=== PATIENT | female | born 1960 | race Caucasian/White ===

== ENCOUNTER → 2019-05-29 15:28 | Outpatient (CLI) | payer BC, SELFPAY ==
--- NOTE | 2019-05-29 | DI.CT.S_ITS ---
PROCEDURE: CT CHEST WO CON INDICATIONS: Bronchiectasis, uncomplicated TECHNIQUE: Noncontrast 5 mm thick sections acquired from the pulmonary apices to the posterior costophrenic angles. 1 mm lung window, 5 mm thick coronal and sagittal and 7 mm axial MIP reformats were then acquired. For radiation dose reduction, the following was used: automated exposure control, adjustment of mA and/or kV according to patient size. COMPARISON: [facility], CR, CHEST 2VW, 01/08/2007, 12:55. [facility], CT, THORAX WITH CONTRAST, 10/19/2016, 7:05. FINDINGS: Image quality: Excellent. Lungs and pleura: No acute consolidation. There is widespread bilateral upper and lower lobe bronchiectasis, and bronchial wall thickening. There are scattered areas of mucoid impaction. Previously seen and described small pulmonary nodules are either stable or less conspicuous since 10/19/16 although this could be in part a function due to progressive/coalescent fibrotic change. Diffuse mosaic lung attenuation is seen, suggesting air-trapping and small airways disease. No pleural effusions or pneumothorax. There is diffuse panlobular emphysema with basilar predominance. Mediastinum: Heart size is normal. No pericardial effusion. No mediastinal adenopathy by size criteria. Thoracic aorta and central pulmonary arteries are normal in size. Esophagus is normal in caliber. No hiatal hernia. Bones and chest wall: No suspicious bony lesions. No vertebral body compression fractures. No axillary or supraclavicular adenopathy by size criteria. Thyroid gland unremarkable. Abdomen: Visualized upper abdominal solid organs and bowel loops appear normal in the absence of contrast. IMPRESSION: Redemonstration of basilar predominant panlobular emphysema in keeping with alpha-1 antitrypsin deficiency. Widespread upper, lower lobe bronchiectasis and airway thickening as before. Dictated by: Javier Clark M.D. on 05/29/2019 at 17:09 Approved by: Javier Clark M.D. on 05/29/2019 at 17:21
== END ==
PROVIDERS: Visit Provider Internal Medicine Critical Care Medicine
DX: J43.1 Panlobular emphysema (principal); J47.9 Bronchiectasis, uncomplicated
CPT/HCPCS: 71250

== ENCOUNTER 2019-12-31 10:00 | Outpatient (RCR) | payer BC, SELFPAY ==
[2019-11-12 13:33] VITALS: BP 130/80; O2SAT 89; BMI 24.0; BMI 26.4
--- NOTE | 2019-11-12 15:51 | PR.IEVALNOTE ---
Current Diagnoses Chronic obstructive pulmonary disease, unspecified (11/12/19) Visit Care Team Role Provider Type Ingrid Hager MD Attending Provider Non-Staff Specialty: Pulmonology Address: [address] [place] [address], [id number] Email: Pulmonary Rehab Initial Evaluation [place] Pulmonary Rehab Inital Assessment Start: 11/12/19 13:29 Freq: Status: Active Protocol: Document 11/12/19 13:33 RAULITO (Rec: 11/12/19 13:50 RAULITO [id number]) AK Exercise Assessment Dx: Brochiectasis Comment COPD, Primary Language CROATIAN Sheet Cutting Operator Required No Hearing Ability Normal Visual Impairment No Limitations Visual Assist Glasses Body Alignment Posture Good Posture,Relaxed Assistive Devices None Comment pt denies any barriers to exercise and states she will be able to exercise independently after completion of Pulmonary Rehab Comment not currently exercising AK Vital Signs Left Radial Resting Heart Rate: 94 Target Heart Rate: 120 Strength: Normal Pulse Rhythm: Regular Pulse Assessment Method Pulse Ox/Monitor Pulse Oximetry (91-100 %) 89 L Nasal Cannula Yes Oxygen Flow Rate (L/min) 3 O2 Sat: 89 Respiratory Effort Non-Labored Respiratory Depth Normal Assessment expiratory wheezes through out Left Arm Blood Pressure (90/60-140/90 mmHg) 130/80 Blood Pressure Method Manual Cuff/Auscultation Blood Pressure Position Sitting AK Six Minute Walk Test Oxygen Flow Rate (L) (L/min) 3 Respiratory Rate (breaths/min) 18 Pulse Rate (beats/min) 94 O2 Saturation by Pulse Oximetry (%) 90 Pulse Rate (beats/min) 113 Ambulation Distance (feet) 200 O2 Saturation by Pulse Oximetry (%) 89 Pulse Rate (beats/min) 116 Ambulation Distance (feet) 150 O2 Saturation by Pulse Oximetry (%) 88 Pulse Rate (beats/min) 123 Ambulatory Distance (feet) 200 O2 Saturation by Pulse Oximetry (%) 82 Ambulation Distance (feet) 150 O2 Saturation by Pulse Oximetry (%) 88 Respiratory Rate (breaths/min) 24 Pulse Rate (beats/min) 120 Ambulation Distance (feet) 0 O2 Saturation by Pulse Oximetry (%) 90 PUlse Rate (beats/min) 118 Ambulation Distance (feet) 150 O2 Saturation by Pulse Oximetry (%) 90 Respiratory Rate (breaths/min) 16 Pulse Rate (beats/min) 99 O2 Saturation by Pulse Oximetry (%) 93 Activity Tolerance Fair Adverse Reactions Desaturation Distance 850 ft Emmett RPE Scale 13 Oriented to RPE Scale Yes Dyspnea 3.5 Oriented to Dyspnea Scale Yes AK Exercise Goals Exercise Goals Progression of exercise training volume will result from increases in time, intensity, and frequency. Initial emphasis will be on increasing time. Exercise Goals Demonstrates proper technique with pursed lip breathing Demonstrates paced breathing and breath sequencing with ADL 's, stairs, etc demonstrates propert technique when using respiratory medications DASI Number and Comment 7.31 patient is working 20-30 hrs/ week Short Term focus on breathing techniques ie: pursed lip and diaphragmatic breathing Group Home goal to be able climb stairs at home without undue dyspnea AK Pulmonary Rehab Orientation Complete Complete Yes AK Nutrition Assessment PFT Date 05/06/17 Forced Vital Capacity (FVC) 1.41 46% Forced Exp. Volume/Forced Vital Cap 65 Ratio (FEV1/FVC Ratio) Forced Expiratory Volume in 1 sec. 0.92 38% Diffusing Capacity of the Lung (DLCO) 11.2 54% History of Diabetes No Type N/A Admit Height 155 cm Admit Weight 63.503 kg Admit Body Mass Index (BMI) 26.4 Weight Goal 135 BMI Goal 24 Liters Per Minute at Rest 2-3 Liters per Minute with ADL's 4-6 Liters per Minute with Sleep 2 Liters per Minute with Exercise 4-6 High Energy Periods Airplane Designer,Morning,Mid- Morning Tolerates Activity Fair Signs and Symptoms Activity Intolerance Dyspnea on Exertion,Fatigue on Exertion,Pallor,Significant Decrease in Orthostatic Systolic Blood Pressure AK Education Pre-Test Score 93 Tobacco Use N/A Use Yes Type wine Frequency 1/2 glass/ day Concerns None Education Topics Breathing Retraining Discussed Education Requirements on Yes Intake AK Psychosocial Initial Assess HADS Score 1 HADS Score 4 Marital Status Referral Needed No Target Goals increase exercise tolerance to meet or exceed Anderson score Physician Comment Ready for Pulmonary Rehabilitation Cooperative,Motivated
--- NOTE | 2019-12-17 15:16 | PR.REVALNOTE ---
Current Diagnoses Chronic obstructive pulmonary disease, unspecified (12/17/19) Visit Care Team Role Provider Type Ingrid Hager MD Attending Provider Non-Staff Specialty: Pulmonology Address: [address] [place] [address], [id number] Email: Pulmonary Rehab Re-Evaluation [place] Pulmonary Rehab. Re-Assessment Start: 11/12/19 13:29 Freq: Status: Active Protocol: Document 12/17/19 15:03 JAMESRoxanne (Rec: 12/17/19 15:16 JWRoxanne [id number]) MO Exercise Re-Assessment New Session Number 1-13 Type Nustep,Treadmill METs (resistance level) TM3.29 NS3.23 % Improvement TM 47% NS 24% Interval Training No Shortness of Breath with Exercise Yes Desaturation with Exercise Yes: Patient showing improvement with titration of O2 depending on activities Free Weight Yes Band Level Yes Intervention Pt requires frequent reminders to initiate PLB with CVEX Pt demonstrates good understanding of paced breathing MO Nutrition Re-Assessment Goals Pt will continue to learn tips Hypoxia Re-Assessment pt. showing progress with O2 titration requires infrequent reminders to adjust O2-showing progress MO Education Re-Assessment Topics Benefits of Exercise, Activities of daily living/ Leisure Activities,Eating Right,Oxygen: How and Why Goals Pt will Master PLB and Diaphragmatic Breathing,Pt will Master Energy Conserving Techniques,Pt will learn exercise safety,Pt will continue ED topics until completion MO Psychosocial Re-Assessment Patient in Class Regularly Yes Interventions Pt attending class regularly Referral Needed No Goals Pt will continue to attend classes 3x wk,Participate in social and educational discussion,Received emotional support from family/friends
--- NOTE | 2020-01-13 11:26 | PR.REVALNOTE ---
Current Diagnoses Chronic obstructive pulmonary disease, unspecified (12/31/19) Visit Care Team Role Provider Type Ingrid Hager MD Attending Provider Non-Staff Specialty: Pulmonology Address: [address] [place] [address], [phone] Email: Pulmonary Rehab Re-Evaluation [place] Pulmonary Rehab. Re-Assessment Start: 11/12/19 13:29 Freq: Status: Active Protocol: Document 12/17/19 15:03 Roxanne (Rec: 12/17/19 15:16 [facility] [id number]) [place] Exercise Re-Assessment New Session Number 1-13 Type Nustep,Treadmill METs (resistance level) TM3.29 NS3.23 % Improvement TM 47% NS 24% Interval Training No Shortness of Breath with Exercise Yes Desaturation with Exercise Yes: Patient showing improvmetn with titration of O2 depending on activities Free Weight Yes Band Level Yes Intervention Pt requires frequent reminders to initiate PLB with CVEX Pt demonstrates good understanding of paced breathing [place] Nutrition Re-Assessment Goals Pt will continue to learn tips Hypoxia Re-Assessment pt. showing progress with O2 titration reqiures infrequent reminders to adjust O2-showing progress [place] Education Re-Assessment Topics Benefits of Exercise, Activities of daily living/ Leisure Activities,Eating Right,Oxygen: How and Why Goals Pt will Master PLB and Diaphragmatic Breating,Pt will Master Energy Conserving Techniques,Pt will learn exercise safety,Pt will continue ED topics until completion [place] Psychosocial Re-Assessment Patient in Class Regularly Yes Interventions Pt attending class regularly Referral Needed No Goals Pt will continue to attend classes 3x wk,Participate in social and educational discussion,Received emotional support from family/friends Document 01/13/20 11:24 RAULITO (Rec: 01/13/20 11:26 [facility] [id number]) [place] Psychosocial Re-Assessment Additional Comment unable to assess patient as a result of the closure of Pulmonary Rehabilitation due to the Covid-19 pandemic
== END 2019-12-31 11:00 ==
LOC: PUL 10:00
PROVIDERS: Visit Provider Internal Medicine
DX: J44.9 Chronic obstructive pulmonary disease, unspecified (principal)
CPT/HCPCS: G0424

== ENCOUNTER → 2020-05-03 16:47 | Outpatient (CLI) | payer BC, SELFPAY ==
[2019-11-12 13:33] VITALS: BMI 24.0; BMI 26.4
--- NOTE | 2020-05-03 16:50 | DI.MG.S_ITS ---
BILATERAL DIGITAL SCREENING MAMMOGRAM 3D/2D WITH CAD: 05/03/2020 CLINICAL: Routine screening. Comparison is made to exams dated: 12/21/2016 mammogram, 12/26/2012 mammogram, and 08/28/2010 mammogram - [facility]. The tissue of both breasts is heterogeneously dense. This may lower the sensitivity of mammography. Current study was also evaluated with a Computer Aided Detection (CAD) system. No significant masses, calcifications, or other findings are seen in either breast. There has been no significant interval change. IMPRESSION: NEGATIVE There is no mammographic evidence of malignancy. A 1 year screening mammogram is recommended. This exam was interpreted at Station ID: [id number]. NOTE: For mammograms, a report in lay terms will be sent to the patient. Approximately 15% of breast malignancies will not be visualized mammographically. In the management of a palpable breast mass, a negative mammogram must not discourage biopsy of a clinically suspicious lesion. Electronically Signed By: Katerin fink/adry:05/04/2020 09:13:01 letter sent: Normal Exam ACR BI-RADS Category 1: Negative [id number]
== END ==
PROVIDERS: Referring Provider Physician Assistant Medical; Visit Provider Physician Assistant Medical
DX: Z12.31 Encounter for screening mammogram for malignant neoplasm of breast (principal)
CPT/HCPCS: 77063; 77067

== ENCOUNTER → 2020-06-07 14:50 | Outpatient (CLI) | payer BC, SELFPAY ==
[2019-11-12 13:33] VITALS: BMI 24.0; BMI 26.4
== END ==
PROVIDERS: PCP Physician Assistant Medical; Referring Provider Physician Assistant Medical; Visit Provider Physician Assistant Medical
DX: M85.851 Other specified disorders of bone density and structure, right thigh (principal); Z78.0 Asymptomatic menopausal state
CPT/HCPCS: 77080

== ENCOUNTER → 2020-11-15 07:59 | Outpatient (CLI) | payer BC, SELFPAY ==
[2019-11-12 13:33] VITALS: BMI 24.0; BMI 26.4
[2020-11-15 08:37] LABS: BUN Creatinine Ratio 37.7 (6-22); Blood Urea Nitrogen 23 mg/dL (7-17); Carbon Dioxide 29 mmol/L (22-32); Chloride 104 mmol/L (98-107); Estimated Glomerular Filt Rate > 60.0 mL/min (>60); Glucose 86 mg/dL (80-110); HEMOLYSIS < 15 (0-50); Potassium 4.5 mmol/L (3.4-5.1); Sodium 138 mmol/L (137-145)
[2020-11-16 08:12] LABS: Tacrolimus 7.5 ng/mL (2.0-20.0)
== END ==
PROVIDERS: PCP Physician Assistant Medical; Referring Provider Internal Medicine; Visit Provider Internal Medicine
DX: Z94.2 Lung transplant status (principal); Z79.899 Other long term (current) drug therapy
CPT/HCPCS: 80048; 80197

== ENCOUNTER → 2020-12-21 07:34 | Outpatient (CLI) | payer BC, SELFPAY ==
[2019-11-12 13:33] VITALS: BMI 24.0; BMI 26.4
[2020-12-21 08:27] LABS: Add Manual Diff / Slide Review NO; Basophils Absolute Auto 0 /uL (0-100); Basophils Percent Auto 1.3 % (0-2); Eosinophils Absolute Auto 100 /uL (0-450); Eosinophils Percent Auto 4.5 % (2-4); Hematocrit 34.8 % (36-46); Hemoglobin 11.7 g/dL (12.0-16.0); Lymphocytes Absolute Auto 1100 /uL (1100-4500); Lymphocytes Percent Auto 41.8 % (25-40); Mean Corpuscular HGB Conc 33.7 % (30-36); Mean Corpuscular Hemoglobin 34.3 PG (26-34); Mean Corpuscular Volume 102.1 fL (80-100); Monocytes Absolute Auto 800 /uL (0-900); Monocytes Percent Auto 30.8 % (3-14); Neutrophils Absolute Auto 600 /uL (1500-7000); Neutrophils Percent Auto 21.6 % (50-75); Platelet Count 205 X10^3/uL (150-400); Red Blood Cell Count 3.41 X10^6/uL (4.0-5.2); Red Cell Distribution Width 14.4 % (11.6-14.8); White Blood Cell Count 2.7 X10^3/uL (4.5-11.0)
[2020-12-21 08:35] LABS: BUN Creatinine Ratio 32.8 (6-22); Blood Urea Nitrogen 21 mg/dL (7-17); Calcium 9.1 mg/dL (8.4-10.2); Carbon Dioxide 30 mmol/L (22-32); Chloride 101 mmol/L (98-107); Estimated Glomerular Filt Rate > 60.0 mL/min (>60); Glucose 110 mg/dL (80-110); HEMOLYSIS < 15 (0-50); Potassium 4.3 mmol/L (3.4-5.1); Sodium 134 mmol/L (137-145)
[2020-12-22 16:09] LABS: CMV DNA, Quant Real Time PCR Negative (Negative)
== END ==
PROVIDERS: PCP Physician Assistant Medical; Referring Provider Internal Medicine; Visit Provider Internal Medicine
DX: Z94.2 Lung transplant status (principal); Z79.899 Other long term (current) drug therapy
CPT/HCPCS: 36415; 80048; 80197; 85025; 87497

== ENCOUNTER → 2020-12-29 07:58 | Outpatient (CLI) | payer BC, SELFPAY ==
[2019-11-12 13:33] VITALS: BMI 24.0; BMI 26.4
[2020-12-29 08:27] LABS: Add Manual Diff / Slide Review NO; Basophils Absolute Auto 100 /uL (0-100); Basophils Percent Auto 1.3 % (0-2); Eosinophils Absolute Auto 100 /uL (0-450); Eosinophils Percent Auto 2.9 % (2-4); Hematocrit 36.8 % (36-46); Hemoglobin 12.2 g/dL (12.0-16.0); Lymphocytes Absolute Auto 2200 /uL (1100-4500); Lymphocytes Percent Auto 54.6 % (25-40); Mean Corpuscular HGB Conc 33.1 % (30-36); Mean Corpuscular Hemoglobin 33.6 PG (26-34); Mean Corpuscular Volume 101.6 fL (80-100); Monocytes Absolute Auto 1100 /uL (0-900); Monocytes Percent Auto 28.3 % (3-14); Neutrophils Absolute Auto 500 /uL (1500-7000); Neutrophils Percent Auto 12.9 % (50-75); Platelet Count 284 X10^3/uL (150-400); Red Blood Cell Count 3.63 X10^6/uL (4.0-5.2); Red Cell Distribution Width 13.6 % (11.6-14.8)
[2020-12-29 08:42] LABS: BUN Creatinine Ratio 33.3 (6-22); Blood Urea Nitrogen 21 mg/dL (7-17); Calcium 9.1 mg/dL (8.4-10.2); Carbon Dioxide 29 mmol/L (22-32); Chloride 103 mmol/L (98-107); Estimated Glomerular Filt Rate > 60.0 mL/min (>60); Glucose 53 mg/dL (80-110); HEMOLYSIS < 15 (0-50); Potassium 3.8 mmol/L (3.4-5.1); Sodium 138 mmol/L (137-145)
[2020-12-30 14:22] LABS: Tacrolimus 4.6 ng/mL (2.0-20.0)
[2020-12-30 17:52] LABS: CMV DNA, Quant Real Time PCR Negative (Negative)
== END ==
PROVIDERS: PCP Physician Assistant Medical; Referring Provider Internal Medicine; Visit Provider Internal Medicine
DX: Z94.2 Lung transplant status (principal); Z79.899 Other long term (current) drug therapy
CPT/HCPCS: 36415; 80048; 80197; 85025; 87497

== ENCOUNTER → 2021-01-09 07:33 | Outpatient (CLI) | payer BC, SELFPAY ==
[2019-11-12 13:33] VITALS: BMI 24.0; BMI 26.4
[2021-01-09 08:19] LABS: Add Manual Diff / Slide Review NO; Basophils Absolute Auto 100 /uL (0-100); Basophils Percent Auto 0.5 % (0-2); Eosinophils Absolute Auto 100 /uL (0-450); Eosinophils Percent Auto 0.9 % (2-4); Hematocrit 37.2 % (36-46); Hemoglobin 12.6 g/dL (12.0-16.0); Lymphocytes Absolute Auto 3400 /uL (1100-4500); Mean Corpuscular HGB Conc 33.8 % (30-36); Mean Corpuscular Volume 100.7 fL (80-100); Monocytes Absolute Auto 1300 /uL (0-900); Monocytes Percent Auto 12.4 % (3-14); Neutrophils Absolute Auto 5800 /uL (1500-7000); Neutrophils Percent Auto 54.2 % (50-75); Platelet Count 287 X10^3/uL (150-400); Red Blood Cell Count 3.69 X10^6/uL (4.0-5.2); Red Cell Distribution Width 12.8 % (11.6-14.8); White Blood Cell Count 10.8 X10^3/uL (4.5-11.0)
[2021-01-09 08:27] LABS: BUN Creatinine Ratio 31.8 (6-22); Blood Urea Nitrogen 21 mg/dL (7-17); Calcium 9.3 mg/dL (8.4-10.2); Carbon Dioxide 28 mmol/L (22-32); Chloride 101 mmol/L (98-107); Estimated Glomerular Filt Rate > 60.0 mL/min (>60); HEMOLYSIS < 15 (0-50); Potassium 3.5 mmol/L (3.4-5.1); Sodium 137 mmol/L (137-145)
[2021-01-09 08:43] LABS: Glucose 41 mg/dL (80-110)
[2021-01-10 08:50] LABS: Tacrolimus 7.4 ng/mL (2.0-20.0)
[2021-01-10 16:36] LABS: CMV DNA, Quant Real Time PCR Negative (Negative)
== END ==
PROVIDERS: PCP Physician Assistant Medical; Referring Provider Internal Medicine; Visit Provider Internal Medicine
DX: Z94.2 Lung transplant status (principal); Z79.899 Other long term (current) drug therapy
CPT/HCPCS: 36415; 80048; 80197; 85025; 87497

== ENCOUNTER → 2021-08-24 12:36 | Outpatient (CLI) | payer BC, SELFPAY ==
[2019-11-12 13:33] VITALS: BMI 24.0; BMI 26.4
== END ==
PROVIDERS: PCP Internal Medicine; Referring Provider Internal Medicine; Visit Provider Internal Medicine
DX: M85.851 Other specified disorders of bone density and structure, right thigh (principal); Z78.0 Asymptomatic menopausal state
CPT/HCPCS: 77080

== ENCOUNTER 2021-08-28 08:30 | Outpatient (RCR) | payer BC, SELFPAY ==
[2019-11-12 13:33] VITALS: BMI 24.0; BMI 26.4
== END 2021-08-28 10:30 ==
LOC: PUL 08:30
PROVIDERS: PCP Internal Medicine; Referring Provider Internal Medicine; Visit Provider Internal Medicine
DX: Z94.2 Lung transplant status (principal)
CPT/HCPCS: G0237; G0238

== ENCOUNTER → 2021-09-21 10:03 | Outpatient (CLI) | payer BC, SELFPAY ==
[2019-11-12 13:33] VITALS: BMI 24.0; BMI 26.4
[2021-09-21 14:39] LABS: Clostridium Difficile Tox PCR Negative for C. diff (Negative)
[2021-09-23 19:39] LABS: Cryptosporidium EIA Negative (Negative)
== END ==
PROVIDERS: PCP Internal Medicine; Referring Provider Internal Medicine; Visit Provider Internal Medicine
DX: Z94.2 Lung transplant status (principal); R19.7 Diarrhea, unspecified
CPT/HCPCS: 87045; 87205; 87328; 87329; 87493; 87798; 87899

== ENCOUNTER → 2021-09-27 15:17 | Outpatient (CLI) | payer BC, SELFPAY ==
[2019-11-12 13:33] VITALS: BMI 24.0; BMI 26.4
--- NOTE | 2021-09-27 15:23 | DIET.PN1 ---
Dietary Progress Note Assessment: 61y [address] visit for help with healthy eating s/p lung transplant (Aug 2020) and new onset diarrhea. 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 Takes Januvia and metformin 1500mg (has had issues with GI discomfort, on third type) 800mg magnesium daily secondary to medication causing magnesium deficiency (400mg bid) Suddenly in June started having diarrhea from 7am to 5pm about 3x but then after dinner until morning is up almost all night with loose stools. Has lost 20# since June, having bad diarrhea at first had a lot of fullness in stomach like a rock-gastroparesis? Pt seems to tolerate carbs the best, toni mashed potatoes and gravy or grilled cheese, also soups/liquids/broths Foods look good but will vomit everything up, has to eat small portions to keep food down smells are strong but not bad so being careful Pt had not been tolerating dairy, however, over the past week has been drinking almost gallon per day of 2% milk, cannot get enough. Pt being worked up by [facility] transplant team to see if viral, bacterial, or actual source of these sx. Usual Day: B(7am): oatmeal or yogurt and berries (would love to eat a cinnamon roll with milk and butter since lung transplant) L: broccoli cheese or chicken noodle c apple or orange teas c milk or stevia water with a little juice D: baked potato, some protein- 1/2 chicken breast, string cheese, or soup ice cream after dinner Ht: 5' Wt: 129# (-14% unintentional in 10w, severe) BMI: 25.2 UBW: 145-150# Nutrition Diagnosis: Severe Acute Protein Calorie Malnutrition r/t GI distress aeb 14% unintentional weight loss in 10w, V/D x10w with vomiting if eating more than a few bites of food each hour and loose stools 3x/daytime and nearly every hour at night, PO intake meeting <50% EER over 10w. RD Impression: Pt has several medications on board which can cause GI distress and loose stools, most concerning to this RD is 800mg magnesium daily from supplements with pts diarrhea worsening overnight after second magnesium dose. Pt seems to have upper and lower GI sx in early satiety, taste changes, and vomiting possibly some gastritis, as well as loose stools. Focus on 5 small frequent meals/d attaining at least 1300kcals/d with good sources of soluble fiber, vitamin A, food sources of magnesium, fluid in foods, healthy fats to support lungs and adequate protein without aggravating elevated creatinine. Interventions: 1. Collaborated c pt on list of food ingredients she is currently tolerating and using current health status and nutrition needs, created meal plan to support body under current conditions. Items include (incomplete list): almond butter on protein waffle/apple/celery, fish c potatoes and asparagus, bone broth, chicken c winter squash and zucchini, 2% milk c strawberries, 1/2 protein drink, grilled cheese sandwich c wilian, oats c blueberries, yogurt c berries... EER: 1300kcals, 55g PRO, 400mg magnesium from food Monitoring/Evaluations: f/u prn Electronically Signed by: Yu Marley 09/27/21 15:23 Clinical Dietitian [address] [address]
[2021-09-27 16:04] VITALS: BMI 25.2
== END ==
PROVIDERS: PCP Internal Medicine; Referring Provider Internal Medicine; Visit Provider Internal Medicine
DX: E09.9 Drug or chemical induced diabetes mellitus without complications (principal); R19.7 Diarrhea, unspecified; Z79.4 Long term (current) use of insulin; Z79.84 Long term (current) use of oral hypoglycemic drugs; Z71.3 Dietary counseling and surveillance; Z68.25 Body mass index [BMI] 25.0-25.9, adult; Z94.2 Lung transplant status
CPT/HCPCS: 97802

== ENCOUNTER 2021-12-30 08:38 | Emergency (ER) | payer BC, SELFPAY ==
[2019-11-12 13:33] VITALS: BMI 24.0; BMI 26.4
[2021-12-30 08:57] VITALS: BP 142/76; PULSE 88; RESP 16; TEMP 36.8; O2SAT 100; BMI 25.4
--- NOTE | 2021-12-30 09:03 | ED_ITS ---
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 [facility] She has experienced diarrhea for the past 6 months. 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 Over the past 2 days she has developed suprapubic pain. She has no bloody diarrhea. She has no fever chills. She has no dysuria, or hematuria. She has no history of kidney stones. About a year ago, she was diagnosed with diverticulitis by CT at an outside hospital. She thinks the diverticulitis is back. She has no URI complaints. She denies sore throat or fever. She has intermittent, mild headaches. She denies chest pain or dyspnea. With the diarrhea, her appetite remains well. She is eating and drinking appropriately. Related Data Home Medications Medication Instructions Recorded Confirmed amlodipine 5 mg tablet 5 mg PO DAILY tab 05/02/21 10/23/21 atorvastatin 20 mg tablet 20 mg PO BEDTIME tab 05/02/21 10/23/21 clotrimazole 10 mg mary ann 10 mg PO DAILY tab 05/02/21 10/23/21 metformin 500 mg tablet,extended 1,500 mg PO DAILY tab 05/02/21 10/23/21 release 24 hr mycophenolate mofetil 500 mg tablet 1,000 mg PO BID tab 05/02/21 10/23/21 pantoprazole 40 mg tablet,delayed 40 mg PO DAILY tab 05/02/21 10/23/21 release sitagliptin 100 mg tablet (Januvia) 100 mg PO DAILY tab 05/02/21 10/23/21 sulfamethoxazole 400 1 tab PO DAILY tab 05/02/21 10/23/21 mg-trimethoprim 80 mg tablet tacrolimus 0.5 mg capsule, 0.5 mg PO DAILY cap 05/02/21 10/23/21 immediate-release tacrolimus 1 mg capsule, 8 mg PO DAILY cap 05/02/21 10/23/21 immediate-release prednisone 5 mg tablet 5 mg PO DAILY tab 06/27/21 10/23/21 magnesium oxide 400 mg PO BID 10/23/21 10/23/21 valacyclovir 500 mg tablet 500 mg PO BID 10/23/21 10/23/21 Previous Rx's Medication Instructions Recorded amoxicillin 875 mg-potassium 1 tab PO BID #14 tab 12/30/21 clavulanate 125 mg tablet Allergies Allergy/AdvReac Type Severity Reaction Status Date / Time banana Allergy Severe Swelling, Verified 12/30/21 09:02 Anaphylaxsis. Review of Systems Constitutional Constitutional: Reports as per HPI, Denies body ache(s), Denies chills, Denies fatigue, Denies fever(s) and Denies weakness ENT Ears, Nose, Mouth, and Throat: Denies dizziness, Denies sinus pressure and Denies sore throat Cardiovascular Cardiovascular: Denies chest pain, Denies rapid heart rate, Denies pedal edema, Denies edema and Denies dyspnea Respiratory Respiratory: Denies cough and Denies dyspnea Gastrointestinal Gastrointestinal: Denies abdominal pain, Denies constipation, Denies dyspepsia, Reports loose stools (See HPI.) and Denies nausea Genitourinary Genitourinary: Denies dysuria, Denies urinary hesitancy and Denies urinary urgency Musculoskeletal Musculoskeletal: Denies back pain Integumentary/Breasts Skin/Breast: Denies lesions and Denies rash Neurologic Neurologic: Denies confusion, Denies dizziness and Denies weakness Psychiatric Psychiatric: Denies confusion Endocrine Endocrine: Denies fatigue Hematologic/Lymphatic On Anticoagulants: No Patient History Medical History Chronic renal failure, stage 3a Diabetes type 2, controlled Diverticular disease of colon Essential hypertension Mixed hyperlipidemia Osteopenia Surgical History S/P appy Status post transplant, lung (~08/2020) Social History Smoking Status: Never smoker Smoking Status: Never smoker alcohol intake frequency: 0-2 drinks per day Substance Use Type: does not use Exam Initial Vital Signs Initial Vital Signs: Vital Signs Temperature 98.2 F 12/30/21 08:57 Pulse Rate 88 12/30/21 08:57 Respiratory Rate 16 12/30/21 08:57 Blood Pressure 142/76 H 12/30/21 08:57 Pulse Oximetry 100 03/12/22 08:57 Const General: cooperative, healthy appearing, comfortable, well developed and well groomed [facility] Head: normocephalic and atraumatic Eyes General: appearance normal, both eyes and all related structures (No icterus) Neck Neck: full ROM and No JVD Resp Auscultation: clear to auscultation bilaterally Cardio Rate: regular rate Rhythm: regular rhythm Heart Sounds: S1 normal, S2 normal, no click and no murmurs GI Other: Left lower quadrant tenderness with mild guarding. No rebound. No masses. Normal bowel sounds. No distension. Back/Spine/Pelvis Back: No CVA tenderness Skin General: no rashes or lesions noted Neuro General: patient alert, patient awake, patient oriented x3 and no focal motor deficits Extrem General: normal to inspection, full ROM, no pedal edema and no calf tenderness Psych Mental Status: mental status grossly normal Course Course Course Narrative: Mild diverticulitis is discovered by CT. There is no evidence of abscess formation. The patient has mild left lower quadrant pain, but evaluation is otherwise reassuring. She is discharged on Augmentin. Due to her chronic diarrhea immunosuppression, I advised her to follow up with PCM after finishing the antibiotics to test for Clostridium difficile. She is advised return here for increasing pain or fever. Orders Ordered: ED Orders 12/30/21 09:05 Complete Blood Count AUTO DIFF Stat Comprehensive Metabolic Panel Stat Lipase Stat 12/30/21 09:13 CT abdomen pelvis wo con Stat Sodium Chloride (Normal Saline 0.9%) 1,000 mls @ 150 mls/hr IV CONT DELIA Last Admin: 12/30/21 09:46 Dose: 150 mls/hr Documented by: ROCHELLE Discontinued Medications Amoxicillin/Clavulanate Potassium (Amoxicillin/Clav 875/125 Mg) 1 tab PO NOW ONE Stop: 12/30/21 11:48 Ketorolac Tromethamine (Ketorolac 30 Mg/Ml Vial) 15 mg IV NOW ONE Stop: 12/30/21 09:14 Last Admin: 12/30/21 09:45 Dose: 15 mg Documented by: ROCHELLE Vital Signs Vital signs: Vital Signs - 8 hr 12/30/21 08:57 Temperature 98.2 F Pulse Rate 88 Respiratory Rate 16 Blood Pressure 142/76 H Pulse Oximetry 100 MDM - Abdominal Pain Lab Data Result diagrams: 12/30/21 09:05 12/30/21 09:05 Labs: Lab Results 12/30/21 12/30/21 Range/Units 09:05 09:05 WBC 7.8 (4.5-11.0) X10^3/uL RBC 2.80 L (4.0-5.2) X10^6/uL Hgb 8.9 L (12.0-16.0) g/dL Hct 27.3 L (36-46) % MCV 97.5 (80-100) fL MCH 32.0 (26-34) PG MCHC 32.8 (30-36) % RDW 14.3 (11.6-14.8) % Plt Count 238 (150-400) X10^3/uL Neut % (Auto) 76.5 H (50-75) % Lymph % (Auto) 10.2 L (25-40) % Saline % (Auto) 8.1 (3-14) % Eos % (Auto) 1.9 L (2-4) % Baso % (Auto) 3.3 H (0-2) % Neut # (Auto) 5900 (3204-8530) /uL Lymph # (Auto) 800 L (8983-8660) /uL Saline # (Auto) 600 (0-900) /uL Eos # (Auto) 100 (0-450) /uL Baso # (Auto) 300 H (0-100) /uL Sodium 136 L (137-145) mmol/L Potassium 4.0 (3.4-5.1) mmol/L Chloride 105 (98-107) mmol/L Carbon Dioxide 27 (22-32) mmol/L BUN 22 H (7-17) mg/dL Creatinine 1.46 H (0.52-1.04) mg/dL Estimated GFR 36.4 L (>60) mL/min BUN/Creatinine Ratio 15.1 (6-22) Glucose 132 H (80-110) mg/dL Calcium 8.9 (8.4-10.2) mg/dL Total Bilirubin 0.2 (0.2-1.3) mg/dL AST 29 (14-36) IU/L ALT 27 (<35) IU/L Alkaline Phosphatase 41 (38-126) U/L Total Protein 6.5 (6.3-8.2) g/dL Albumin 3.9 (3.5-5.0) g/dL Globulin 2.6 (1.7-4.1) g/dL Albumin/Globulin Ratio 1.5 (1.0-2.8) Lipase 90 (23-300) U/L Imaging Data CT scan - abdomen/pelvis: Radiologist's Impression: Diverticulitis, no abscess. Discharge Plan Departure Patient Disposition: Home Clinical Impression: Diverticulitis Instructions: DI for Diverticulitis Activity Restrictions/Additional Instructions: Continue your current medications. Augmentin 2 times daily for 7 days. Be sure you are drinking plenty of fluids. I recommend probiotics. Due to your current diarrhea, I suggest you follow up with her PCM after finishing the antibiotics. As part of your diarrhea management your doctor may want to test for Clostridium difficile. Return the ER for increasing pain or fever. Prescriptions: New amoxicillin-pot clavulanate 875-125 mg tablet 1 tab PO BID Qty: 14 0RF No Action sulfamethoxazole-trimethoprim 400-80 mg tablet 1 tab PO DAILY 0RF metformin 500 mg tablet extended release 24 hr 1,500 mg PO DAILY 0RF pantoprazole 40 mg tablet,delayed release (DR/EC) 40 mg PO DAILY 0RF tacrolimus 0.5 mg capsule 0.5 mg PO DAILY 0RF tacrolimus 1 mg capsule 8 mg PO DAILY 0RF atorvastatin 20 mg tablet 20 mg PO BEDTIME 0RF Januvia 100 mg tablet 100 mg PO DAILY 0RF amlodipine 5 mg tablet 5 mg PO DAILY 0RF mycophenolate mofetil 500 mg tablet 1,000 mg PO BID 0RF clotrimazole 10 mg mary ann 10 mg PO DAILY 0RF prednisone 5 mg tablet 5 mg PO DAILY 0RF magnesium oxide 400 mg magnesium tablet 400 mg PO BID 0RF valacyclovir 500 mg tablet 500 mg PO BID 0RF Referrals: Ru Mayorga MD [Primary Care Provider] -
--- NOTE | 2021-12-30 09:13 | DI.CT.S_ITS ---
PROCEDURE: CT ABDOMEN PELVIS WO CON INDICATIONS: Suprapubic pain. History of diverticulitis. TECHNIQUE: Axial sections were acquired from the lung bases to the pubic symphysis. Coronal and sagittal reformats were performed. For radiation dose reduction, the following was used: automated exposure control, adjustment of mA and/or kV according to patient size. COMPARISON: [facility], CT, CT CHEST WO [facility], 05/29/2019, 16:06. FINDINGS: Image quality: Excellent. Lung bases: No pleural effusion. Heart: No significant findings. Sternotomy hardware. URINARY: Right Kidney: No hydronephrosis. Punctate nonobstructing right kidney stone, (2). Right Ureter: No hydroureter. Left Kidney: No stones or hydronephrosis. Left Ureter: No hydroureter. Bladder: Normal wall thickness. No stones. ABDOMEN: Liver: Unremarkable. Gallbladder: Unremarkable. Biliary ducts: Unremarkable. Pancreas: Unremarkable. Spleen: Unremarkable. Adrenal Glands: Unremarkable. Stomach and Bowel: No small bowel obstruction. Small duodenal diverticulum. Colonic diverticulosis. There is inflammatory change about the sigmoid colon, (4/30). This is consistent with diverticulitis. No abscess. The appendix is not identified. Peritoneum: No abnormal intraperitoneal fluid. No free air. Ventral Wall: No hernia. Abdominal Nodes: No enlarged retroperitoneal or mesenteric lymph nodes. Vessels: Aorta and inferior vena cava are normal in size. Mild calcified plaque. PELVIS: Pelvic Organs: Anterior uterus is unremarkable. No free fluid. Pelvic Nodes: Unremarkable. Miscellaneous: No inguinal hernias are seen. Bones: No compression fracture. Mild degenerative change and DDD. IMPRESSION: 1. Mild sigmoid colon diverticulitis. No abscess. 2. No hydronephrosis. Punctate nonobstructing right kidney stone. Dictated by: Abdi Cedillo M.D. on 12/30/2021 at 9:10 Approved by: Abdi Cedillo M.D. on 12/30/2021 at 9:19
[2021-12-30 09:21] LABS: Add Manual Diff / Slide Review NO; Basophils Absolute Auto 300 /uL (0-100); Basophils Percent Auto 3.3 % (0-2); Eosinophils Absolute Auto 100 /uL (0-450); Eosinophils Percent Auto 1.9 % (2-4); Hematocrit 27.3 % (36-46); Hemoglobin 8.9 g/dL (12.0-16.0); Lymphocytes Absolute Auto 800 /uL (1100-4500); Lymphocytes Percent Auto 10.2 % (25-40); Mean Corpuscular HGB Conc 32.8 % (30-36); Mean Corpuscular Volume 97.5 fL (80-100); Monocytes Absolute Auto 600 /uL (0-900); Monocytes Percent Auto 8.1 % (3-14); Neutrophils Absolute Auto 5900 /uL (1500-7000); Neutrophils Percent Auto 76.5 % (50-75); Platelet Count 238 X10^3/uL (150-400); Red Cell Distribution Width 14.3 % (11.6-14.8); White Blood Cell Count 7.8 X10^3/uL (4.5-11.0)
[2021-12-30 09:25] LABS: Alanine Aminotransferase 27 IU/L (<35); Albumin 3.9 g/dL (3.5-5.0); Albumin Globulin Ratio 1.5 (1.0-2.8); Alkaline Phosphatase 41 U/L (38-126); Aspartate Aminotransferase 29 IU/L (14-36); BUN Creatinine Ratio 15.1 (6-22); Bilirubin Total 0.2 mg/dL (0.2-1.3); Blood Urea Nitrogen 22 mg/dL (7-17); Calcium 8.9 mg/dL (8.4-10.2); Carbon Dioxide 27 mmol/L (22-32); Chloride 105 mmol/L (98-107); Estimated Glomerular Filt Rate 36.4 mL/min (>60); Globulin 2.6 g/dL (1.7-4.1); Glucose 132 mg/dL (80-110); HEMOLYSIS < 15 (0-50); Lipase 90 U/L (23-300); Sodium 136 mmol/L (137-145); Total Protein 6.5 g/dL (6.3-8.2)
[2021-12-30] MEDS: KETOROLAC 30 MG/ML VIAL 15 MG IV (09:45)
[2021-12-30] MEDS: SODIUM CHLORIDE 0.9% 1,000 ML 150 ML IV (09:46)
[2021-12-30] MEDS: AMOXICILLIN/CLAV 875/125 MG 1 TAB PO (12:11)
[2021-12-30 12:38] VITALS: BP 126/76; PULSE 81; RESP 16; O2SAT 99
== END 2021-12-30 12:39 | disposition home or self-care (01) ==
PROVIDERS: Emergency Provider Emergency Medicine; PCP Internal Medicine
DX: K57.32 Diverticulitis of large intestine without perforation or abscess without bleeding (principal)
CPT/HCPCS: 36415; 74176; 80053; 83690; 85025; 96361; 96374; 99284; J1885

== ENCOUNTER → 2022-01-22 09:58 | Outpatient (CLI) | payer BC, SELFPAY ==
[2019-11-12 13:33] VITALS: BMI 24.0; BMI 26.4
[2022-01-22 12:54] LABS: COVID19 -Nasal RAPID Negative (Negative)
== END ==
PROVIDERS: PCP Internal Medicine; Visit Provider Internal Medicine
DX: Z20.822 Contact with and (suspected) exposure to COVID-19 (principal)
CPT/HCPCS: 87635; C9803

== ENCOUNTER 2022-01-24 10:34 | Day surgery (SDC) | payer BC, SELFPAY ==
[2019-11-12 13:33] VITALS: BMI 24.0; BMI 26.4
--- NOTE | 2022-01-24 | PATH_ITS ---
[facility] Accession Number: [id number] . 01 Material submitted: . colon - RANDOM COLON . 01 Clinical history: . DO SPECIAL STAINS FOR CMV . 02 Diagnosis: Random Colon, Biopsies: Colonic mucosa with distortion of the crypt architecture without active inflammation. Please see comment. Negative for granulomas, dysplasia, and malignancy. MRV 01/30/2022 1445 Local . 02 Comment: The random colon biopsies show features of chronic inflammation, including branched crypt architecture, shortened crypt length, increased lymphocytes, plasma cells and eosinophils in the lamina propria. No obvious viral cytopathic effects, parasitic organisms or granulomas are identified. The differential diagnosis includes infection, medication-related mucosal injury, trauma/prolapse/diverticular disease, and idiopathic inflammatory bowel disease. . 02 Electronically signed: . Shwetha Douglas MD, Pathologist NPI- [id number] . 01 Gross description: . RANDOM COLON: Received in formalin are multiple fragment(s) of guzman, soft tissue measuring 1.1 x 0.4 x 0.1 cm in aggregate submitted entirely in 1 cassette(s) /CPE 01/25/2022 0757 Local . 02 Microscopic: . An immunohistochemical stain for CMV antigen is performed and is negative. The control stain shows appropriate reactivity. . * This test was developed and its performance characteristics determined by [facility]. It has not been cleared or approved by the U.S. Food and Drug Administration. The FDA has determined that such clearance or approval is not necessary. This test is used for clinical purposes. It should not be regarded as investigational or for research. . 02 Pathologist provided ICD-10: R19.7 . 02 CPT . 193251, [id number] Specimen Comment: A courtesy copy of this report has been sent to [facility] Performed at: 01 [facility] [address], [place], [place] [id number] MD Nikhil Tinajero MD Phone: [phone] Performed at: 02 [facility] [place] [address] [place], [place] [id number] MD Shwetha Douglas MD Phone: [phone]
--- NOTE | 2022-01-24 10:26 | PM.PREOP ---
Pre-operative Note COVID-19 COVID-19 status: Negative Interval Note History & Physical reviewed/Exam performed by Physician: Yes Changes to H&P: No ASA Class (for procedural sedation): II
--- NOTE | 2022-01-24 10:27 | PM.OP.COLON ---
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 Most recently stools negative for CMV but with significant diarrhea of finding explained etiology. Need for evaluation of colitis with biopsies to be taken for CMV staining and culture. Surgeon: Marnie Gimenez Procedure Notes Procedure in detail: After informed consent was obtained the patient was placed in left lateral decubitus position. The video colonoscope was introduced the rectum and slowly advanced the cecum. Ic valve was identified and intubated. On slow withdrawal mucosa was carefully examined. The scope was removed. The patient tolerated procedure well. Preparation was good. Blood loss none Complications none Sedation mac Findings 1. Very mild patchy blurring of the vascular pattern or patchy erythema. Biopsies taken throughout the colon for pathology and CMV staining. In addition biopsies were taken in viral transport media for CMV culture. 2. Otherwise negative colonoscopy to cecum. Terminal ileum could not be easily intubated We will merely await biopsies in all give her a call next week.
[2022-01-24 10:50] VITALS: BMI 25.5
[2022-01-24 10:57] VITALS: BP 142/77; PULSE 79; RESP 16; TEMP 36.8; O2SAT 100
[2022-01-24] MEDS: SODIUM CHLORIDE 0.9% 1,000 ML 84 ML IV (11:09)
[2022-01-24 12:00] VITALS: BP 117/71; PULSE 80; RESP 19; TEMP 36.4; O2SAT 100
[2022-01-24 12:05] VITALS: BP 124/80; PULSE 79; RESP 18; O2SAT 100
[2022-01-24 12:10] VITALS: BP 129/75; PULSE 77; RESP 19; O2SAT 100
--- NOTE | 2022-01-24 12:11 | SUR.PHASEI ---
discharge instructions reviewed pt and she verbalized understanding.
[2022-01-24 12:15] VITALS: BP 129/71; PULSE 79; RESP 18; O2SAT 100
[2022-01-24 12:19] VITALS: BP 136/77; PULSE 78; RESP 16; O2SAT 98
== END 2022-01-24 12:30 | disposition home or self-care (01) ==
LOC: ENDO 10:35
PROVIDERS: PCP Internal Medicine; Referring Provider Internal Medicine Gastroenterology; Visit Provider Internal Medicine Gastroenterology
PROC: 0DJD8ZZ Inspection of Lower Intestinal Tract, Via Natural or Artificial Opening Endoscopic (ICD-10-PCS; CPT 45378; principal; 2022-01-24 11:30)
DX: R19.7 Diarrhea, unspecified (principal); B25.9 Cytomegaloviral disease, unspecified; Z94.2 Lung transplant status; E11.9 Type 2 diabetes mellitus without complications; Z79.84 Long term (current) use of oral hypoglycemic drugs; E78.5 Hyperlipidemia, unspecified; I10 Essential (primary) hypertension; K21.9 Gastro-esophageal reflux disease without esophagitis
CPT/HCPCS: 45380; 82962; 87252; 87254; J2704

== ENCOUNTER → 2023-03-15 07:08 | Outpatient (CLI) | payer MEDICARE, BC, SELFPAY ==
[2019-11-12 13:33] VITALS: BMI 24.0; BMI 26.4
[2023-03-16 06:02] LABS: x Labcorp Estim. Avg Glu (eAG) 146 mg/dL (.); x Labcorp Hemoglobin A1c 6.7 % (4.8-5.6)
== END ==
PROVIDERS: PCP Internal Medicine; Referring Provider Internal Medicine; Visit Provider Internal Medicine
DX: E11.9 Type 2 diabetes mellitus without complications (principal)
CPT/HCPCS: 36415; 83036

== ENCOUNTER → 2023-07-23 09:58 | Outpatient (CLI) | payer MEDICARE, BC, SELFPAY ==
[2019-11-12 13:33] VITALS: BMI 24.0; BMI 26.4
--- NOTE | 2023-07-23 | DI.RAD.S_ITS ---
Bone Density Report Name: LORNA HARDING Age: 63 Sex: Female Ethnicity: White Date of : 1960 Indication: osteopenia; history of glucocorticoids; Referring Provider: JOHANNA LOVE M.D. Study: Bone densitometry was performed. Exam Date: July 23, 2023 Accession number: [id number] Bone Density: Region BMD T-score Z-score Classification AP Spine(L1-L4) 0.884 -1.5 0.1 Osteopenia Femoral Neck (Left) 0.628 -2.0 -0.6 Osteopenia Total Hip (Left) 0.860 -0.7 0.4 Normal Femoral Neck (Right) 0.615 -2.1 -0.7 Osteopenia Total Hip (Right) 0.736 -1.7 -0.6 Osteopenia Total Hip Mean 0.798 -1.2 -0.1 Osteopenia World Health Organization criteria for BMD impression classify patients as: Normal (T-score at or above -1.0), Osteopenia (T-score between -1.0 and -2.5), or Osteoporosis (T-score at or below -2.5). 10-year Fracture Risk(1): Major Osteoporotic Fracture 16% Hip Fracture 2.6% Reported Risk Factors: [place] (), Neck BMD=0.615, BMI=28.3, glucocorticoids (1) FRAX(R) Version 3.08. Fracture probability calculated for an untreated patient. Fracture probability may be lower if the patient has received treatment. Previous Exams: -- Region Exam Age BMD T-score BMD Change BMD Change Date g/cm2 vs Baseline vs Previous -- AP Spine (L1-L4) 07/23/2023 63 0.884 -1.5 0.007 (0.8%)# 0.012 (1.4%)# 08/24/2021 61 0.872 -1.6 -0.005 (-0.6%) -0.005 (-0.6%) 06/07/2020 59 0.877 -1.5 Total Hip(Left) 07/23/2023 63 0.860 -0.7 -0.022 (-2.5%)# -0.019 (-2.1%)# 08/24/2021 61 0.879 -0.5 -0.003 (-0.3%) -0.003 (-0.3%) 06/07/2020 59 0.881 -0.5 Total Hip(Right) 07/23/2023 63 0.736 -1.7 -0.042 (-5.4%)# -0.030 (-3.9%)# 08/24/2021 61 0.766 -1.4 -0.012 (-1.5%) -0.012 (-1.5%) 06/07/2020 59 0.778 -1.3 -- *Denotes significance at 95% confidence level, LSC for AP Spine = 0.022 g/cm2, LSC for Total Hip = 0.027 g/cm2 # Denotes dissimilar scan types or analysis methods Impression: The patient has low bone mass, based on the Right Femoral Neck T-score. The patient has an estimated ten-year risk of hip fracture of 2.6% and an estimated ten-year risk of major fracture of 16%, based on the WHO FRAX algorithm. The patient has risk factors, including: history of glucocorticoid therapy. No significant bone loss was observed. Discussion: BONE DENSITY IS LOW AT ONE OR MORE SKELETAL SITES. This patient's lowest T-score is low at one or more skeletal sites. It meets the World Health Organization's (WHO) criteria for low bone mass (T-score between -1.0 and -2.5). The patient's 10-year risk of fracture as calculated by FRAX is less than the threshold where pharmacological therapy is recommended by the National Osteoporosis Foundation (NOF). However, all treatment decisions require clinical judgment and consideration of individual patient factors, including patient preferences, comorbidities, previous drug use, risk factors not captured in the FRAX model (e.g., frailty, falls, vitamin D deficiency, increased bone turnover, interval significant decline in bone density) and possible under or overestimation of fracture risk by FRAX. The patient should follow a healthful lifestyle (good nutrition with adequate calcium and vitamin D, and appropriate weight-bearing exercise). Follow-Up: Consider repeating this study in 2 to 3 years to reassess this patient's status, or sooner if there is some new clinical indication. Reported by: ZENOBIA CALDERON M.D. on 07/23/2023 10:43:00 AM.
== END ==
PROVIDERS: PCP Internal Medicine; Referring Provider Internal Medicine; Visit Provider Internal Medicine
DX: M85.89 Other specified disorders of bone density and structure, multiple sites (principal); Z79.811 Long term (current) use of aromatase inhibitors; Z79.52 Long term (current) use of systemic steroids
CPT/HCPCS: 77080

== ENCOUNTER → 2023-08-29 14:47 | Outpatient (CLI) | payer MEDICARE, BC, SELFPAY ==
[2019-11-12 13:33] VITALS: BMI 24.0; BMI 26.4
== END ==
PROVIDERS: PCP Internal Medicine; Referring Provider Internal Medicine; Visit Provider Internal Medicine
DX: N18.31 Chronic kidney disease, stage 3a (principal); E11.9 Type 2 diabetes mellitus without complications; I10 Essential (primary) hypertension; E78.2 Mixed hyperlipidemia
CPT/HCPCS: 36415; 80053; 80061; 82043; 82570; 83036

== ENCOUNTER → 2024-02-27 06:47 | Outpatient (CLI) | payer MEDICARE, BC, SELFPAY ==
[2019-11-12 13:33] VITALS: BMI 24.0; BMI 26.4
[2024-02-27 07:56] LABS: Hemoglobin A1C% w Est Avg Glu 5.8 % (4.0-6.0)
[2024-02-27 08:09] LABS: Alanine Aminotransferase 27 IU/L (<35); Albumin Globulin Ratio 1.8 (1.0-2.8); Alkaline Phosphatase 50 U/L (38-126); Aspartate Aminotransferase 28 IU/L (14-36); BUN Creatinine Ratio 21.9 (6-22); Bilirubin Total 0.4 mg/dL (0.2-1.3); Blood Urea Nitrogen 30 mg/dL (7-17); Calcium 9.5 mg/dL (8.4-10.2); Carbon Dioxide 27 mmol/L (22-32); Chloride 105 mmol/L (98-107); Cholesterol 154 mg/dL (140-199); Estimated Glomerular Filt Rate 43 mL/min (>60); Globulin 2.2 g/dL (1.7-4.1); Glucose 85 mg/dL (80-110); HDL Cholesterol 85 mg/dL (40-60); HEMOLYSIS < 15 (0-50); LDL Cholesterol Calculated 47 mg/dL (<100); Potassium 4.1 mmol/L (3.4-5.1); Sodium 137 mmol/L (137-145); Total Protein 6.2 g/dL (6.3-8.2); Triglycerides 111 mg/dL (35-150)
== END ==
LOC: LAB 06:48
PROVIDERS: PCP Internal Medicine; Referring Provider Internal Medicine; Visit Provider Internal Medicine
DX: E11.9 Type 2 diabetes mellitus without complications (principal); I10 Essential (primary) hypertension; E78.2 Mixed hyperlipidemia
CPT/HCPCS: 36415; 80053; 80061; 83036

== ENCOUNTER → 2024-03-19 15:13 | Outpatient (CLI) | payer MEDICARE, BC, SELFPAY ==
[2019-11-12 13:33] VITALS: BMI 24.0; BMI 26.4
--- NOTE | 2024-03-19 15:14 | DI.MG.S_ITS ---
BILATERAL DIGITAL SCREENING MAMMOGRAM 3D/2D WITH CAD: 03/19/2024 CLINICAL: Routine screening. Comparison is made to exams dated: 11/28/2022 mammogram - [facility], 05/03/2020 mammogram - [facility], 01/02/2019 mammogram - [facility], and 12/21/2016 mammogram - [facility]. Both breasts are heterogeneously dense, which may obscure small masses (category c / 51-75% glandular tissue). Current study was also evaluated with a Computer Aided Detection (CAD) system. No significant masses, calcifications, or other findings are seen in either breast. There has been no significant interval change. IMPRESSION: NEGATIVE There is no mammographic evidence of malignancy. A 1 year screening mammogram is recommended. Based on the Tyrer Cuzick model (a risk assessment model) the patient's lifetime risk is 8.4% and her 10 year risk is 3.8%. According to the ACR, ACS, and NCCN guidelines, an annual breast MRI exam along with mammogram is recommended if the patient's lifetime risk is 20% or greater. This exam was interpreted at Station ID: [id number]. NOTE: For mammograms, a report in lay terms will be sent to the patient. Approximately 15% of breast malignancies will not be visualized mammographically. In the management of a palpable breast mass, a negative mammogram must not discourage biopsy of a clinically suspicious lesion. Electronically Signed By: Abdi lima/adry:03/20/2024 15:36:03 letter sent: Normal Exam ACR BI-RADS Category 1: Negative 3341F
== END ==
LOC: MAMMO 15:14
PROVIDERS: PCP Internal Medicine; Referring Provider Internal Medicine; Visit Provider Internal Medicine
DX: Z12.31 Encounter for screening mammogram for malignant neoplasm of breast (principal); R92.333 Mammographic heterogeneous density, bilateral breasts
CPT/HCPCS: 77063; 77067

== ENCOUNTER → 2024-09-24 07:54 | Outpatient (CLI) | payer MEDICARE, BC, SELFPAY ==
[2019-11-12 13:33] VITALS: BMI 24.0; BMI 26.4
[2024-09-24 09:34] LABS: Hemoglobin A1C% w Est Avg Glu 5.4 % (4.0-6.0)
[2024-09-24 10:53] LABS: Alanine Aminotransferase 25 IU/L (<35); Albumin 4.1 g/dL (3.5-5.0); Alkaline Phosphatase 45 U/L (38-126); Aspartate Aminotransferase 31 IU/L (14-36); Bilirubin Total 0.5 mg/dL (0.2-1.3); Blood Urea Nitrogen 31 mg/dL (7-17); Calcium 9.7 mg/dL (8.4-10.2); Carbon Dioxide 25 mmol/L (22-32); Chloride 102 mmol/L (98-107); Estimated Glomerular Filt Rate 37 mL/min (>60); Globulin 2.1 g/dL (1.7-4.1); Glucose 99 mg/dL (80-110); HEMOLYSIS < 15 (0-50); Potassium 4.1 mmol/L (3.4-5.1); Sodium 137 mmol/L (137-145); Total Protein 6.2 g/dL (6.3-8.2)
== END ==
PROVIDERS: PCP Internal Medicine; Referring Provider Internal Medicine; Visit Provider Internal Medicine
DX: I12.9 Hypertensive chronic kidney disease with stage 1 through stage 4 chronic kidney disease, or unspecified chronic kidney disease (principal); E11.9 Type 2 diabetes mellitus without complications; N18.31 Chronic kidney disease, stage 3a; E78.2 Mixed hyperlipidemia
CPT/HCPCS: 36415; 80053; 83036

== ENCOUNTER → 2024-10-01 08:03 | Outpatient (CLI) | payer MEDICARE, BC, SELFPAY ==
[2019-11-12 13:33] VITALS: BMI 24.0; BMI 26.4
[2024-10-01 09:33] LABS: Blood Urea Nitrogen 34 mg/dL (7-17); Calcium 9.5 mg/dL (8.4-10.2); Carbon Dioxide 23 mmol/L (22-32); Chloride 105 mmol/L (98-107); Estimated Glomerular Filt Rate 45 mL/min (>60); Glucose 93 mg/dL (80-110); HEMOLYSIS < 15 (0-50); Potassium 4.3 mmol/L (3.4-5.1); Sodium 134 mmol/L (137-145)
[2024-10-02 10:31] LABS: Tacrolimus 5.5 ng/mL (2.0-20.0)
== END ==
PROVIDERS: PCP Internal Medicine; Referring Provider Internal Medicine; Visit Provider Internal Medicine
DX: E83.49 Other disorders of magnesium metabolism (principal); D64.9 Anemia, unspecified; Z94.2 Lung transplant status
CPT/HCPCS: 36415; 80048; 80197

== ENCOUNTER → 2025-03-18 07:08 | Outpatient (CLI) | payer MEDICARE, BC, SELFPAY ==
[2019-11-12 13:33] VITALS: BMI 24.0; BMI 26.4
[2025-03-18 07:50] LABS: Hemoglobin A1C% w Est Avg Glu 5.5 % (4.0-6.0)
[2025-03-18 08:01] LABS: Alanine Aminotransferase 19 IU/L (<35); Albumin 3.9 g/dL (3.5-5.0); Albumin Globulin Ratio 1.9 (1.0-2.8); Alkaline Phosphatase 55 U/L (38-126); Aspartate Aminotransferase 26 IU/L (14-36); Bilirubin Total 0.4 mg/dL (0.2-1.3); Blood Urea Nitrogen 28 mg/dL (7-17); Calcium 9.1 mg/dL (8.4-10.2); Carbon Dioxide 24 mmol/L (22-32); Chloride 104 mmol/L (98-107); Cholesterol 164 mg/dL (140-199); Estimated Glomerular Filt Rate 47 mL/min (>60); Globulin 2.1 g/dL (1.7-4.1); Glucose 87 mg/dL (70-99); HDL Cholesterol 82 mg/dL (40-60); HEMOLYSIS < 15 (0-50); LDL Cholesterol Calculated 62 mg/dL (<100); Potassium 4.3 mmol/L (3.4-5.1); Sodium 137 mmol/L (137-145); Triglycerides 98 mg/dL (35-150)
[2025-03-18 08:10] LABS: Creatinine Urine Random 93.88 mg/dL
[2025-03-18 08:16] LABS: Microalbumin Urine Random 1.2 mg/dL (0-1.6)
== END ==
PROVIDERS: PCP Internal Medicine; Referring Provider Internal Medicine; Visit Provider Internal Medicine
DX: E11.9 Type 2 diabetes mellitus without complications (principal); N18.31 Chronic kidney disease, stage 3a; E78.2 Mixed hyperlipidemia; I10 Essential (primary) hypertension
CPT/HCPCS: 36415; 80053; 80061; 82043; 82570; 83036

== ENCOUNTER 2025-05-20 11:52 | Emergency (ER) | payer MEDICARE, BC, SELFPAY ==
[2019-11-12 13:33] VITALS: BMI 24.0; BMI 26.4
[2025-05-20] VITALS (11 sets, daily range): BP systolic 136–173; BP diastolic 71–81; PULSE 82–95; RESP 14–18; TEMP 37; O2SAT 96–99; BMI 23.9
[2025-05-20 12:31] LABS: Hematocrit 33.9 % (36-46); Hemoglobin 11.5 g/dL (12.0-16.0); Mean Corpuscular HGB Conc 34.0 % (30-36); Mean Corpuscular Hemoglobin 35.6 PG (26-34); Mean Corpuscular Volume 104.6 fL (80-100); Platelet Count 266 X10^3/uL (150-400)
[2025-05-20 12:32] LABS: Add Manual Diff / Slide Review YES
[2025-05-20 12:48] LABS: Alanine Aminotransferase 20 IU/L (<35); Albumin 4.2 g/dL (3.5-5.0); Albumin Globulin Ratio 1.6 (1.0-2.8); Alkaline Phosphatase 62 U/L (38-126); Atypical Lymphocytes Percent 5.0 %; Band Neutrophils Percent 1.0 % (3-7); Blood Urea Nitrogen 25 mg/dL (7-17); Calcium 9.2 mg/dL (8.4-10.2); Carbon Dioxide 24 mmol/L (22-32); Chloride 101 mmol/L (98-107); Eosinophils Percent Manual 2.0 % (2-4); Estimated Glomerular Filt Rate 59 mL/min (>60); Globulin 2.7 g/dL (1.7-4.1); Glucose 122 mg/dL (70-99); Lipase 120 U/L (23-300); Lymphocytes Percent Manual 9.0 % (25-45); Monocytes Percent Manual 17.0 % (2-11); Neutrophils Absolute Manual 2881 /uL (3000-5900); Rouleaux 2+; Segmented Neutrophils Percent 66.0 % (38-70); Sodium 133 mmol/L (137-145); Total Cells Counted 100; Total Protein 6.9 g/dL (6.3-8.2)
[2025-05-20 12:49] LABS: HEMOLYSIS 66 (0-50)
[2025-05-20 12:50] LABS: Potassium 4.5 mmol/L (3.4-5.1)
--- NOTE | 2025-05-20 16:15 | ED.ABDPAIN ---
HPI - Abdominal Pain General Chief Complaint: Abdominal Pain Stated Complaint: Lower left abdomen pain/Possible diverticulitis Time Seen by Provider: 05/20/25 16:02 Mode of arrival: Ambulatory History of Present Illness HPI narrative: Patient here with for left lower quadrant pain. 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 Patient history of chronic kidney disease. Patient complains of left lower quadrant pain starting last night. Constant. Sharp pain. Nausea but no vomiting no urinary complaints no black or bloody stools. No urinary complaints Related Data Home Medications ?Medication ?Instructions ?Recorded ?Confirmed atorvastatin 20 mg tablet 20 mg PO BEDTIME 05/02/21 04/01/25 metformin 500 mg tablet,extended 1,500 mg PO DAILY 05/02/21 04/01/25 release 24 hr pantoprazole 40 mg tablet,delayed 40 mg PO DAILY 05/02/21 04/01/25 release tacrolimus 1 mg capsule, 8 mg PO DAILY 05/02/21 04/01/25 immediate-release prednisone 5 mg tablet 5 mg PO DAILY 06/27/21 04/01/25 magnesium oxide 400 mg PO BID 10/23/21 04/01/25 mycophenolate mofetil 500 mg tablet 1,000 mg PO DAILY 02/19/22 04/01/25 semaglutide 0.25 mg or 0.5 mg (2 0.25 mg SUBCUT 10/01/24 04/01/25 mg/3 mL) subcutaneous pen injector (Ozempic) sulfamethoxazole 400 1 tab PO ONCE PM 10/01/24 04/01/25 mg-trimethoprim 80 mg tablet valacyclovir 500 mg tablet 1,000 mg PO BID 10/01/24 04/01/25 tacrolimus 0.5 mg capsule, 0.5 mg PO BID 10/02/24 04/01/25 immediate-release Previous Rx's ?Medication ?Instructions ?Recorded amoxicillin 875 mg-potassium 1 tab PO BID #14 tabs 05/20/25 clavulanate 125 mg tablet hydrocodone 5 mg-acetaminophen 325 1 tab PO Q6H PRN pain #24 tabs 05/20/25 mg tablet ondansetron 4 mg disintegrating 4 mg PO Q6H PRN nausea and 05/20/25 tablet vomiting #20 tabs Allergies Allergy/AdvReac Type Severity Reaction Status Date / Time banana Allergy Severe Swelling, Verified 05/20/25 12:11 Anaphylaxsis. Review of Systems Review of Systems Narrative: GENERAL: Negative chills, fatigue, malaise, fever, sweats. HEENT: Negative sinus pain, ear pain, sore throat RESPIRATORY: Negative dyspnea, cough CARDIOVASCULAR: Negative chest pain, palpitations GASTROINTESTINAL: Negative vomiting, positive nausea, abdominal pain : Negative dysuria, frequency, hematuria MUSCULOSKELETAL: Negative muscle or bony pain SKIN: Negative rash, skin lesions NEUROLOGIC: Negative weakness, numbness ROS Unobtainable: All systems reviewed & are unremarkable except as noted in HPI and below Patient History Medical History (Updated 05/20/25 @ 17:55 by Davi Gutiérrez MD) Immunosuppression due to drug therapy History of cervical dysplasia Vaginal dryness, menopausal Chronic renal failure, stage 3a Diabetes type 2, controlled Osteopenia Diverticular disease of colon Mixed hyperlipidemia Essential hypertension Surgical History (Updated 10/01/24 @ 16:02 by Yani Tam DO) S/P conization of cervix S/P appy Status post transplant, lung (~08/2020) Social History household members: spouse Smoking Status: Never smoker alcohol intake: former Smoking Status: Never smoker alcohol intake frequency: 0-2 drinks per day Exam Narrative Exam Narrative: GENERAL: in no distress, not toxic not dyspneic HEAD: Normocephalic. EYES: Pupils equal round ENT: Mucous membranes moist. NECK: Trachea midline. CARDIOVASCULAR: Regular rate and rhythm RESPIRATORY: Clear to auscultation. Breath sounds equal bilaterally. No wheezes, rales, or rhonchi. GASTROINTESTINAL: Abdomen soft, reproducible left lower quadrant tenderness no peritoneal signs no guarding or rebound. Bowel sounds are present. EXTREMITIES: No gross deformities. BACK: No flank tenderness. NEURO: AOx4. Clear speech SKIN: Warm and dry PSYCH: Not anxious, is cooperative Initial Vital Signs Initial Vital Signs: Vital Signs Temperature 98.6 F 05/20/25 12:11 Pulse Rate 95 H 05/20/25 12:11 Respiratory Rate 18 05/20/25 12:11 Blood Pressure 148/72 H 05/20/25 12:11 Pulse Oximetry 97 05/20/25 12:11 Oxygen Delivery Method Room Air 05/20/25 12:11 Course Orders Ordered: ED Orders 05/20/25 12:22 Complete Blood Count AUTO DIFF Stat Comprehensive Metabolic Panel Stat Lipase Stat 05/20/25 16:14 CT abdomen pelvis wo con Stat 05/20/25 17:13 Urine Microscopic Stat Discontinued Medications Amoxicillin/Clavulanate Potassium (Amoxicillin/Clav 875/125 Mg) 1 tab PO NOW ONE Stop: 05/20/25 17:44 Last Admin: 05/20/25 17:59 Dose: 1 tab Documented By: ARIANA Sodium Chloride (Normal Saline 0.9%) 1,000 mls @ 1,000 mls/hr IV BOLUS ONE Stop: 05/20/25 17:13 Last Infusion: 05/20/25 18:17 Dose: Infused Documented By: Admin: 05/20/25 17:15 Dose: 1,000 mls/hr Documented By: ARIANA Morphine Sulfate (Morphine 4 Mg/Ml Inj) 4 mg IV Q3HR PRN PRN Reason: Pain, Moderate (4-6) Ondansetron HCl (Ondansetron 4 Mg/2 Ml Inj) 4 mg IV NOW PRN PRN Reason: Nausea And Vomiting Ondansetron HCl (Ondansetron 4 Mg Odt) 4 mg PO NOW PRN PRN Reason: Nausea And Vomiting Vital Signs Vital signs: Vital Signs - 8 hr 05/20/25 12:11 05/20/25 15:59 05/20/25 15:59 Temperature 98.6 F Pulse Rate 95 H 85 Respiratory Rate 18 Blood Pressure 148/72 H 142/71 H Pulse Oximetry 97 98 Oxygen Delivery Method Room Air 05/20/25 16:00 05/20/25 16:00 05/20/25 16:28 Temperature Pulse Rate 87 Respiratory Rate 15 Blood Pressure 149/77 H Pulse Oximetry 99 Oxygen Delivery Method 05/20/25 16:28 05/20/25 16:30 05/20/25 16:30 Temperature Pulse Rate 91 H 83 Respiratory Rate 15 Blood Pressure 151/77 H Pulse Oximetry 97 99 Oxygen Delivery Method 05/20/25 17:00 05/20/25 17:00 05/20/25 17:06 Temperature Pulse Rate 82 Respiratory Rate 16 Blood Pressure 136/79 137/79 Pulse Oximetry 96 Oxygen Delivery Method Room Air 05/20/25 17:06 05/20/25 17:19 05/20/25 17:19 Temperature Pulse Rate 91 H 95 H Respiratory Rate Blood Pressure 173/81 H Pulse Oximetry 96 97 Oxygen Delivery Method 05/20/25 17:30 05/20/25 17:30 05/20/25 18:00 Temperature Pulse Rate 82 88 Respiratory Rate Blood Pressure 165/76 H Pulse Oximetry 96 97 Oxygen Delivery Method 05/20/25 18:00 05/20/25 18:02 05/20/25 18:02 Temperature Pulse Rate 86 Respiratory Rate 14 Blood Pressure 166/80 H Pulse Oximetry 96 Oxygen Delivery Method Room Air MDM - Abdominal Pain Lab Data 05/20/25 12:22 05/20/25 12:22 Labs: Lab Results 05/20/25 05/20/25 Range/Units 12:22 17:13 WBC 4.3 L (4.5-11.0) X10^3/uL RBC 3.24 L (4.0-5.2) X10^6/uL Hgb 11.5 L (12.0-16.0) g/dL Hct 33.9 L (36-46) % MCV 104.6 H (80-100) fL MCH 35.6 H (26-34) PG MCHC 34.0 (30-36) % RDW 13.6 (11.6-14.8) % Plt Count 266 (150-400) X10^3/uL Neut % (Auto) Not Reportable Lymph % (Auto) Not Reportable Citrus % (Auto) Not Reportable Eos % (Auto) Not Reportable Baso % (Auto) Not Reportable Lymph # (Auto) Not Reportable [place]rus # (Auto) Not Reportable Baso # (Auto) Not Reportable Total Counted 100 Seg Neutrophils % 66.0 (38-70) % Band Neutrophils % 1.0 L (3-7) % Lymphocytes % (Manual) 9.0 L (25-45) % Atypical Lymphs % 5.0 H ( - 0) % Monocytes % (Manual) 17.0 H (2-11) % Eosinophils % (Manual) 2.0 (2-4) % Neutrophils # (Manual) 2881 L (9824-2689) /uL RBC Morphology Not Reportable Rouleaux 2+ H Sodium 133 L (137-145) mmol/L Potassium 4.5 (3.4-5.1) mmol/L Chloride 101 (98-107) mmol/L Carbon Dioxide 24 (22-32) mmol/L BUN 25 H (7-17) mg/dL Creatinine 1.05 H (0.52-1.04) mg/dL Estimated GFR 59 L (>60) mL/min BUN/Creatinine Ratio 23.8 H (6-22) Glucose 122 H (70-99) mg/dL Calcium 9.2 (8.4-10.2) mg/dL Total Bilirubin 0.7 (0.2-1.3) mg/dL AST 34 (14-36) IU/L ALT 20 (<35) IU/L Alkaline Phosphatase 62 (38-126) U/L Total Protein 6.9 (6.3-8.2) g/dL Albumin 4.2 (3.5-5.0) g/dL Globulin 2.7 (1.7-4.1) g/dL Albumin/Globulin Ratio 1.6 (1.0-2.8) Lipase 120 (23-300) U/L Urine RBC None seen (0-5/HPF) Urine WBC 1-5/hpf (0-5/HPF) Ur Squamous Epith Cells 1-5 /hpf (0-5/HPF) Ur Transition Epith Cell 1-5/hpf (0-5/HPF) Urine Bacteria None seen (None) Ur Culture Indicated? Cult not indicated Vol Urine Centrifuged 10ml (spun) Point of care testing: Urine Dip Bedside Urine Glucose Negative Bedside Urine Bilirubin - Negative Bedside Urine Ketone - Negative Urine Specific [place] 1.020 Bedside Urine Occult Blood - Negative Bedside Urine pH 6.0 Bedside Urine Protein - Negative Bedside Urine Urobilinogen - Negative Bedside Urine Nitrite - Negative Bedside Urine Leukocytes +/- [address] scan - abdomen/pelvis: Radiologist's Impression: [place] [address] CT Scan Report Signed Patient: Aniyah Castaneda MR#: [id number] : 1960 Acct:[id number] Age/Sex: 64 / F Date of Service: 05/20/25 Loc: ED Accession Number: [id number] Procedure: CT abdomen pelvis wo con Ordering Provider: Davi Gutiérrez MD PROCEDURE: CT ABDOMEN PELVIS WO CON INDICATIONS: Left lower quadrant pain TECHNIQUE: CT of the abdomen and pelvis was obtained without intravenous contrast. Coronal and sagittal reformats were performed. For radiation dose reduction, the following was used: automated exposure control, adjustment of mA and/or kV according to patient size. COMPARISON: [facility], CT, CT ABDOMEN PELVIS WO CON, 12/30/2021, 9:53. FINDINGS: Image quality: Diagnostic. Lower Chest: Bilateral lung bases are clear. Median sternotomy wires are seen. Heart size is enlarged, no pericardial effusion. ABDOMEN: Liver: No contour-deforming mass. Gallbladder: No radiopaque gallstones or wall thickening. Biliary ducts: No biliary dilation. Pancreas: No ductal dilation. Spleen: Size is within normal limits. Adrenal Glands: No adrenal nodules. Kidneys and Ureters: Tiny 1-2 mm nonobstructing stones are seen in right renal parenchyma. No hydronephrosis. No contour-deforming mass. Stomach and Bowel: There is no bowel obstruction. No gastric or small bowel wall thickening. [id number] fecal stasis in the colon is seen. Significant wall thickening and pericolonic fat stranding involving proximal sigmoid colon is seen. Moderate sigmoid diverticulosis is also noted. No abscess collection. No extra luminal air. Peritoneum: No abnormal intraperitoneal fluid. No free air. Ventral Wall: Small umbilical hernia containing fat only. Abdominal Nodes: No retroperitoneal or mesenteric adenopathy by size criteria. Vessels: Aorta and inferior vena cava are normal in size. PELVIS: Pelvic Organs: Unremarkable. Bladder: Unremarkable. Pelvic Nodes: No enlarged lymph nodes. Miscellaneous: No inguinal hernias are seen. Bones: No aggressive osseous abnormality. No acute vertebral body compression fracture or significant spondylolisthesis. IMPRESSION: 1. Finding is consistent with acute diverticulitis involving proximal sigmoid colon in left lower quadrant. No signs of perforation. No abscess collection. 2. No other area of abnormal bowel wall thickening. [id number] constipation. No free fluid or free air. Dictated by: Reese Rader M.D. on 05/20/2025 at 16:46 Approved by: Reese Rader M.D. on 05/20/2025 at 16:51 MDM Narrative Medical decision making narrative: Patient here with for left lower quadrant pain. 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 Patient history of chronic kidney disease. Patient complains of left lower quadrant pain starting last night. Constant. Sharp pain. Nausea but no vomiting no urinary complaints no black or bloody stools. No urinary complaints MDM After history and exam, CBC CMP urinalysis CT abdomen pelvis morphine Zofran normal saline Differential considered: Includes but not limited to diverticulitis bowel obstruction colitis UTI kidney stone pyelonephritis Medical records reviewed: No recent visit for this complaint Lab Test results independently reviewed as above. Pertinent findings: WBC 4.3 hemoglobin 11.5 Imaging studies independently reviewed: CT abdomen and pelvis acute diverticulitis Consultations: None indicated at this time Re-evaluations: 5:53 p.m.. Updated patient and results. Pain is controlled. They do desire discharge home and outpatient management of diverticulitis. Hydrocodone will be prescribed Augmentin will be prescribed. They desire discharge home. Return precautions reviewed. Discussion: Appropriate for discharge home exam is reassuring. Return precautions reviewed with patient and . Pain is controlled. They desire discharge home. Diagnosis: Acute diverticulitis Discharge Plan Departure Patient Disposition: Home Clinical Impression: Diverticulitis Instructions: DI for Diverticulitis Activity Restrictions/Additional Instructions: Your exam and laboratory studies does show you have diverticulitis. Antibiotics have been started. No driving operating machinery today or when taking prescribed pain medication. Prescription has been provided for you for antibiotics as well. See family doctor next week for re-evaluation. Return if worse if any questions or concerns. Prescriptions: New hydrocodone-acetaminophen 5-325 mg tablet 1 tab PO Q6H PRN (Reason: pain) Qty: 24 0RF ondansetron 4 mg tablet,disintegrating 4 mg PO Q6H PRN (Reason: nausea and vomiting) Qty: 20 0RF amoxicillin-pot clavulanate 875-125 mg tablet 1 tab PO BID Qty: 14 0RF No Action metformin 500 mg tablet extended release 24 hr 1,500 mg PO DAILY pantoprazole 40 mg tablet,delayed release (DR/EC) 40 mg PO DAILY tacrolimus 1 mg capsule 8 mg PO DAILY atorvastatin 20 mg tablet 20 mg PO BEDTIME mycophenolate mofetil 500 mg tablet 1,000 mg PO DAILY prednisone 5 mg tablet 5 mg PO DAILY valacyclovir 500 mg tablet 1,000 mg PO BID sulfamethoxazole-trimethoprim 400-80 mg tablet 1 tab PO ONCE PM Ozempic 0.25 mg or 0.5 mg (2 mg/3 mL) pen injector 0.25 mg SUBCUT tacrolimus 0.5 mg capsule 0.5 mg PO BID magnesium oxide 400 mg magnesium tablet 400 mg PO BID Referrals: Ru Mayorga MD [Primary Care Provider, Internal Medicine] Stand Alone Forms: Patient Portal/API
[2025-05-20] MEDS: SODIUM CHLORIDE 0.9% 1,000 ML 1000 ML IV (17:15)
[2025-05-20] MEDS: AMOXICILLIN/CLAV 875/125 MG 1 TAB PO (17:59)
[2025-05-20 18:18] LABS: Culture Indicated Urine Cult Not Indicated
== END 2025-05-20 18:18 | disposition home or self-care (01) ==
PROVIDERS: Emergency Provider Emergency Medicine; PCP Internal Medicine
DX: K57.92 Diverticulitis of intestine, part unspecified, without perforation or abscess without bleeding (principal)
CPT/HCPCS: 36415; 74176; 80053; 81003; 81015; 83690; 85007; 85025; 96360; 99284

== ENCOUNTER → 2025-07-08 11:01 | Outpatient (CLI) | payer MEDICARE, BC, SELFPAY ==
[2019-11-12 13:33] VITALS: BMI 24.0; BMI 26.4
--- NOTE | 2025-07-08 11:01 | DI.MG.S_ITS ---
MM screening mammo BI: 07/08/2025. BI-RADS: 1 CLINICAL: 65-year old female for bilateral screening mammogram. Tyrer-Cuzick lifetime risk of 6.1%. No personal or first-degree family history of breast cancer. PRIOR EXAMS 03/19/2024, 11/28/2022, 05/03/2020, 12/21/2016. MAMMOGRAPHY TECHNIQUE: 2D and 3D (tomosynthesis) digital mammographic views obtained, with additional images as needed for full coverage. Current study was also evaluated with a Computer Aided Detection (CAD) system. DENSITY C. The breasts are heterogeneously dense, which may obscure small masses. MAMMOGRAPHY FINDINGS Bilateral: No suspicious mass, asymmetry, microcalcification, or other abnormality seen. IMPRESSION: * No evidence of malignancy. RECOMMENDATIONS Bilateral * Annual screening mammography. OVERALL ASSESSMENT CATEGORY BI-RADS-1: Negative. The [employer] recommends annual screening mammography beginning at age 40 for women with average risk of breast cancer. ELECTRONICALLY SIGNED: Beronica Duncan M.D. on 07/08/2025 at 01:07:54 PM PT Interpreting Station ID: [id number]
== END ==
LOC: MAMMO 11:01
PROVIDERS: PCP Internal Medicine; Referring Provider Internal Medicine; Visit Provider Internal Medicine
DX: Z12.31 Encounter for screening mammogram for malignant neoplasm of breast (principal); R92.333 Mammographic heterogeneous density, bilateral breasts
CPT/HCPCS: 77063; 77067

== ENCOUNTER 2025-07-25 12:28 | Emergency (ER) | payer MEDICARE, BC, SELFPAY ==
[2019-11-12 13:33] VITALS: BMI 24.0; BMI 26.4
[2025-07-25] VITALS (12 sets, daily range): BP systolic 126–161; BP diastolic 55–87; PULSE 75–94; RESP 16; TEMP 36.9; O2SAT 91–100; BMI 28.1
[2025-07-25 12:55] LABS: Add Manual Diff / Slide Review NO; Hematocrit 33.0 % (36-46); Hemoglobin 11.1 g/dL (12.0-16.0); Lymphocytes Absolute Auto 500 /uL (1100-4500); Mean Corpuscular HGB Conc 33.5 % (30-36); Mean Corpuscular Hemoglobin 34.8 PG (26-34); Mean Corpuscular Volume 103.9 fL (80-100); Platelet Count 288 X10^3/uL (150-400)
[2025-07-25 13:00] LABS: Alanine Aminotransferase 25 IU/L (<35); Albumin 4.3 g/dL (3.5-5.0); Albumin Globulin Ratio 1.5 (1.0-2.8); Alkaline Phosphatase 69 U/L (38-126); Blood Urea Nitrogen 29 mg/dL (7-17); Calcium 9.4 mg/dL (8.4-10.2); Carbon Dioxide 21 mmol/L (22-32); Chloride 103 mmol/L (98-107); Estimated Glomerular Filt Rate 44 mL/min (>60); Globulin 2.8 g/dL (1.7-4.1); Glucose 142 mg/dL (70-99); HEMOLYSIS < 15 (0-50); Lipase 127 U/L (23-300); Potassium 4.4 mmol/L (3.4-5.1); Sodium 135 mmol/L (137-145); Total Protein 7.1 g/dL (6.3-8.2)
--- NOTE | 2025-07-25 14:23 | DI.CT.S_ITS ---
PROCEDURE: CT ABDOMEN PELVIS W CON INDICATIONS: llq/l flank pain ?pyelo or divertic TECHNIQUE: After the administration of intravenous contrast, axial sections acquired from the lung bases to the pubic symphysis. Coronal and sagittal reformats were performed. For radiation dose reduction, the following was used: automated exposure control, adjustment of mA and/or kV according to patient size. COMPARISON: None. FINDINGS: Image quality: Diagnostic. Lower Chest: No significant findings. ABDOMEN: Liver: No solid mass. Gallbladder: Gallbladder contracted with mild surrounding pericholecystic fluid and questionable hyperemia Biliary ducts: No biliary dilation. Pancreas: No ductal dilation. Spleen: Size is within normal limits. Adrenal Glands: No adrenal nodules. Kidneys and Ureters: No hydronephrosis. No solid mass. No complex renal cystic lesion which requires follow up. Stomach and Bowel: There is mild thickening of the cardia and fundus of the stomach with mild surrounding inflammatory changes concerning for ulcer. Focal thickening of the descending colon with surrounding inflammatory changes without organized fluid collection of the descending colon. Numerous additional colonic diverticula. Peritoneum: Trace fluid along the descending colon without organized abscess or free air. Ventral Wall: No significant ventral hernia. Abdominal Nodes: No retroperitoneal or mesenteric adenopathy by size criteria. Vessels: Aorta and inferior vena cava are normal in size. PELVIS: Pelvic Organs: Unremarkable. Bladder: No bladder wall thickening, accounting for underdistention. Pelvic Nodes: No enlarged lymph nodes. Miscellaneous: No inguinal hernias are seen. Bones: No aggressive osseous abnormality. IMPRESSION: 1. Acute simple diverticulitis of the descending colon. 2. Questionable wall thickening of the cardia of the stomach with trace inflammatory changes concerning for gastritis versus ulcer. Consider direct visualization. 3. Contracted gallbladder with questionable inflammatory changes. Correlate with laboratory values and consider ultrasound. Dictated by: Davi Castillo M.D. on 07/25/2025 at 14:01 Approved by: Davi Castillo M.D. on 07/25/2025 at 14:08
--- NOTE | 2025-07-25 14:27 | ED.ABDPAIN ---
HPI - Abdominal Pain General Chief Complaint: Abdominal Pain Stated Complaint: WIC; Abd/L Side Pain Time Seen by Provider: 07/25/25 14:18 Source: patient Mode of arrival: Ambulatory History of Present Illness HPI narrative: 65-year-old female history of double lung transplant in 2019, prescribed tacrolimus, prednisone, Bactrim, mycophenolate, diverticulitis as well, here with 2-3 days of left lower quadrant left flank pain. No urinary symptoms. No fever. No history of kidney stones or blood in the urine. She has had diverticulitis before and noticed the bumps on the car ride here did exacerbate her pain. She has been having normal bowel movements. No vomiting. No prior abdominal surgeries Related Data Home Medications ?Medication ?Instructions ?Recorded ?Confirmed atorvastatin 20 mg tablet 20 mg PO BEDTIME 05/02/21 07/25/25 metformin 500 mg tablet,extended 1,500 mg PO DAILY 05/02/21 07/25/25 release 24 hr pantoprazole 40 mg tablet,delayed 40 mg PO DAILY 05/02/21 07/25/25 release tacrolimus 1 mg capsule, 8 mg PO DAILY 05/02/21 07/25/25 immediate-release prednisone 5 mg tablet 5 mg PO DAILY 06/27/21 07/25/25 magnesium oxide 400 mg PO BID 10/23/21 07/25/25 mycophenolate mofetil 500 mg tablet 1,000 mg PO DAILY 02/19/22 07/25/25 semaglutide 0.25 mg or 0.5 mg (2 0.25 mg SUBCUT 10/01/24 07/25/25 mg/3 mL) subcutaneous pen injector (Ozempic) sulfamethoxazole 400 1 tab PO ONCE PM 10/01/24 07/25/25 mg-trimethoprim 80 mg tablet valacyclovir 500 mg tablet 1,000 mg PO BID 10/01/24 07/25/25 tacrolimus 0.5 mg capsule, 0.5 mg PO BID 10/02/24 07/25/25 immediate-release Previous Rx's ?Medication ?Instructions ?Recorded amoxicillin 875 mg-potassium 1 tab PO BID #14 tabs 05/20/25 clavulanate 125 mg tablet hydrocodone 5 mg-acetaminophen 325 1 tab PO Q6H PRN pain #24 tabs 05/20/25 mg tablet ondansetron 4 mg disintegrating 4 mg PO Q6H PRN nausea and 05/20/25 tablet vomiting #20 tabs amoxicillin 875 mg-potassium 1 tab PO Q12H 7 days #14 tabs 07/25/25 clavulanate 125 mg tablet hydrocodone 5 mg-acetaminophen 325 1 tab PO Q8H PRN pain #10 tabs 07/25/25 mg tablet ondansetron 4 mg disintegrating 4 mg PO Q8H 5 days #15 tabs 07/25/25 tablet Allergies Allergy/AdvReac Type Severity Reaction Status Date / Time banana Allergy Severe Swelling, Verified 07/25/25 12:38 Anaphylaxsis. Review of Systems Review of Systems Narrative: Pertinent ROS obtained and negative except as stated in HPI Patient History Medical History (Updated 07/25/25 @ 16:40 by Ashanti Gallegos MD) Immunosuppression due to drug therapy History of cervical dysplasia Vaginal dryness, menopausal Chronic renal failure, stage 3a Diabetes type 2, controlled Osteopenia Diverticular disease of colon Mixed hyperlipidemia Essential hypertension Surgical History (Updated 10/01/24 @ 16:02 by Yani Tam DO) S/P conization of cervix S/P appy Status post transplant, lung (~08/2020) Social History household members: spouse alcohol intake: former Smoking Status: Never smoker alcohol intake frequency: 0-2 drinks per day Exam Initial Vital Signs Initial Vital Signs: Vital Signs Temperature 98.4 F 07/25/25 12:35 Pulse Rate 88 07/25/25 12:35 Respiratory Rate 16 07/25/25 12:35 Blood Pressure 161/87 H 07/25/25 12:35 Pulse Oximetry 97 07/25/25 12:35 Oxygen Delivery Method Room Air 07/25/25 12:35 Constitutional: Well appearing, no acute distress, obese body habitus Head: NCAT Cardiovascular: RRR, no murmur or rub Pulmonary: CTA bilaterally, no respiratory distress Abdominal: soft, left lower quadrant tenderness to palpation without g/r Flanks: Left CVA tenderness Extremities: No LE edema Skin: warm and dry, no diaphoresis Neurological: Alert and oriented x3 Course Orders Ordered: Discontinued Medications Sodium Chloride (Normal Saline 0.9%) 1,000 mls @ 1,000 mls/hr IV BOLUS ONE Stop: 07/25/25 15:22 Last Infusion: 07/25/25 16:02 Dose: Infused Documented By: Admin: 07/25/25 14:38 Dose: 1,000 mls/hr Documented By: KOBY Morphine Sulfate (Morphine 4 Mg/Ml Inj) 4 mg IV NOW ONE Stop: 07/25/25 14:26 Last Admin: 07/25/25 14:38 Dose: 4 mg Documented By: KOBY Morphine Sulfate (Morphine 4 Mg/Ml Inj) 4 mg IV NOW ONE Stop: 07/25/25 15:00 Last Admin: 07/25/25 16:13 Dose: Not Given Documented By: VAZQUEZ Ondansetron HCl (Ondansetron 4 Mg/2 Ml Inj) 4 mg IV NOW PRN PRN Reason: Nausea And Vomiting Last Admin: 07/25/25 14:38 Dose: 4 mg Documented By: KOBY Ondansetron HCl (Ondansetron 4 Mg Odt) 4 mg PO NOW PRN PRN Reason: Nausea And Vomiting Vital Signs Vital signs: Vital Signs - 8 hr 07/25/25 12:35 07/25/25 12:50 07/25/25 12:50 Temperature 98.4 F Pulse Rate 88 94 H Respiratory Rate 16 Blood Pressure 161/87 H 148/71 H Pulse Oximetry 97 97 Oxygen Delivery Method Room Air 07/25/25 13:00 07/25/25 13:00 07/25/25 13:30 Temperature Pulse Rate 80 82 Respiratory Rate Blood Pressure 126/63 Pulse Oximetry 96 96 Oxygen Delivery Method 07/25/25 13:30 07/25/25 14:00 07/25/25 14:00 Temperature Pulse Rate 75 Respiratory Rate Blood Pressure 127/62 138/65 Pulse Oximetry 96 Oxygen Delivery Method MDM - Abdominal Pain Lab Data 07/25/25 12:42 07/25/25 12:42 Labs: Lab Results 07/25/25 Range/Units 12:42 WBC 8.9 (4.5-11.0) X10^3/uL RBC 3.17 L (4.0-5.2) X10^6/uL Hgb 11.1 L (12.0-16.0) g/dL Hct 33.0 L (36-46) % MCV 103.9 H (80-100) fL MCH 34.8 H (26-34) PG MCHC 33.5 (30-36) % RDW 14.4 (11.6-14.8) % Plt Count 288 (150-400) X10^3/uL Neut % (Auto) 89.0 H (50-75) % Lymph % (Auto) 5.9 L (25-40) % [place] % (Auto) 4.3 (3-14) % Eos % (Auto) 0.3 L (2-4) % Baso % (Auto) 0.5 (0-2) % Neut # (Auto) 7900 H (6842-5856) /uL Lymph # (Auto) 500 L (0264-9266) /uL [place] # (Auto) 400 (0-900) /uL Eos # (Auto) 0 (0-450) /uL Baso # (Auto) 0 (0-100) /uL Sodium 135 L (137-145) mmol/L Potassium 4.4 (3.4-5.1) mmol/L Chloride 103 (98-107) mmol/L Carbon Dioxide 21 L (22-32) mmol/L BUN 29 H (7-17) mg/dL Creatinine 1.34 H (0.52-1.04) mg/dL Estimated GFR 44 L (>60) mL/min BUN/Creatinine Ratio 21.6 (6-22) Glucose 142 H (70-99) mg/dL Calcium 9.4 (8.4-10.2) mg/dL Total Bilirubin 0.4 (0.2-1.3) mg/dL AST 35 (14-36) IU/L ALT 25 (<35) IU/L Alkaline Phosphatase 69 (38-126) U/L Total Protein 7.1 (6.3-8.2) g/dL Albumin 4.3 (3.5-5.0) g/dL Globulin 2.8 (1.7-4.1) g/dL Albumin/Globulin Ratio 1.5 (1.0-2.8) Lipase 127 (23-300) U/L Point of care testing: Urine Dip Bedside Urine Glucose Negative Bedside Urine Bilirubin - Negative Bedside Urine Ketone - Negative Urine Specific [place] 1.005 Bedside Urine Occult Blood - Negative Bedside Urine pH 6.0 Bedside Urine Protein - Negative Bedside Urine Urobilinogen - Negative Bedside Urine Nitrite - Negative Bedside Urine Leukocytes - Negative Esterase [facility] Narrative Medical decision making narrative: This is a 65-year-old female with comorbidities as above presenting with several days of left flank and left lower quadrant pain. Here in ED vital signs are normal. She has left lower quadrant pain and left CVA tenderness. Differential diagnoses considered include ureteral colic, pyelonephritis, diverticulitis. We will send for CT scan abdomen and pelvis, give IV morphine, as needed Zofran, IV fluids, obtain urinalysis and laboratories Laboratories no leukocytosis there is stable microcytic anemia. There is stable renal insufficiency normal glucose. Urinalysis not infected and culture not indicated CT abdomen pelvis shows acute simple diverticulitis, question whether gastritis versus ulcer as there was some thickening of the cardia portion of the stomach as well as a contracted gallbladder with questionable inflammatory changes. On reassessment the patient has absolutely no right upper quadrant or epigastric discomfort. Denies any history of severe acid reflux or peptic ulcer disease. She continues to localize pain to the left lower quadrant but no peritonitis on reassessment. Vital signs have remained stable. No evidence of SIRS sepsis. At this point I think patient is appropriate for outpatient follow up with trial of p.o. antibiotics. After some shared decision-making we did decide to proceed with oral antibiotics given her immunocompromised state. Return precautions discussed and provided prior to discharge. Pt has PCP appt in a few days. IMPRESSION: 1. Acute simple diverticulitis of the descending colon. 2. Questionable wall thickening of the cardia of the stomach with trace inflammatory changes concerning for gastritis versus ulcer. Consider direct visualization. 3. Contracted gallbladder with questionable inflammatory changes. Correlate with laboratory values and consider ultrasound. Discharge Plan Departure Patient Disposition: Home Clinical Impression: Diverticulitis Instructions: DI for Diverticulitis Activity Restrictions/Additional Instructions: I am glad that you are feeling better. Your CT scan today showed that you have mild diverticulitis, a common cause of pain in the left lower abdomen. I have prescribed you a pain and nausea medication to use at home as needed. As we discussed I think it would be reasonable to take antibiotics given your history of immunosuppression. I have prescribed some narcotic pain medication. Please remember that narcotic pain medication is addictive, lethal in overdose, causes constipation and sedation. If you use this medication consistently over time, your body will become habituated to it and you will ultimately need increasing doses. In the long run, this medication will actually increase your sensitivity to pain and it does not actually address the underlying cause of pain, it only masks at temporarily. You must not drive or perform other risky behavior while on this medication. You must not combine it with alcohol or other drugs. Please only take the minimum amount needed to treat your pain. For managing mild diverticulitis pain or symptoms at home, your healthcare professional may recommend eating only clear foods and clear liquids for a few days. Examples of clear liquids that you can have include: Chicken, beef or vegetable broth. Fruit juices without pulp, such as apple, cranberry and grape juices. Water. Soda. Tea or coffee without cream. Examples of items that you can eat during a clear liquid diet include: Ice pops without bits of fruit or fruit pulp. Ice chips. Gelatin. Hard candy. A clear liquid diet isn't something that you follow parts counterman. It includes limited foods and drinks, so it doesn't meet the body's needs for fiber and certain other nutrients. As you recover from a diverticulitis flare-up As you start feeling better, your healthcare professional likely will have you slowly add low-fiber foods. This way of eating can help the digestive tract heal from a flare. You can eat canned or cooked fruits and vegetables without peels, skins or seeds. Don't eat raw fruits and vegetables for now. Stay away from cooked spinach and greens, peas, and corn too. It's OK to drink strained vegetable juice or fruit juice without pulp. If you have fruit juice, you may be less likely to get discomfort if you dilute it by half with water. Also, your digestive system may have an easier time handling fruit drinks fortified with vitamin C compared with 100% fruit juice. You can eat various proteins while you recover. It's fine to have lean, well-cooked fish and poultry and lean, slow-cooked red meat. Other protein choices include well-cooked eggs, tofu and smooth nut butters. Many dairy products are safe for your digestive system while you get well. You can try drinking fat-free, low-fat or reduced-fat milk. Yogurt also is OK, but don't add fiber-filled toppings such as nuts or granola. Mild cheeses, cottage cheese, sherbert and low-fat ice cream are some other dairy options. Low-fiber grains that you can eat include white bread, rice and pasta. Some other choices are Cream of Wheat, finely ground grits, and cereals made from white or refined flour. Aim to eat 5 to 6 small meals a day. Have about 1 to 2 ounces of protein at each meal, along with another low-fiber food. Drink plenty of water too. Ask your healthcare professional when you can start eating a high-fiber diet again. You may need to add more fiber slowly over a few weeks. If you have mild diverticulitis, you may feel better within 2 to 3 days of starting a clear liquid or low-fiber diet. If you don't start to feel better within a few days, call your healthcare professional. Also call your healthcare professional if: You get a fever. Your stomach pain becomes worse. You can't keep clear liquids down. You may need medicines or treatment in the hospital. Unless your healthcare professional says it's OK, don't stay on a clear liquid diet for more than a few days. This way of eating can lead to weakness and other health issues if you follow it for too long. That's because it doesn't provide enough of the nutrients that the body needs. Your healthcare professional helps you slowly get back to your regular diet as soon as your symptoms start to improve. Prescriptions: New amoxicillin-pot clavulanate 875-125 mg tablet 1 tab PO Q12H 7 Days Qty: 14 0RF ondansetron 4 mg tablet,disintegrating 4 mg PO Q8H 5 Days Qty: 15 0RF hydrocodone-acetaminophen 5-325 mg tablet 1 tab PO Q8H PRN (Reason: pain) Qty: 10 0RF No Action metformin 500 mg tablet extended release 24 hr 1,500 mg PO DAILY pantoprazole 40 mg tablet,delayed release (DR/EC) 40 mg PO DAILY tacrolimus 1 mg capsule 8 mg PO DAILY atorvastatin 20 mg tablet 20 mg PO BEDTIME mycophenolate mofetil 500 mg tablet 1,000 mg PO DAILY prednisone 5 mg tablet 5 mg PO DAILY valacyclovir 500 mg tablet 1,000 mg PO BID sulfamethoxazole-trimethoprim 400-80 mg tablet 1 tab PO ONCE PM Ozempic 0.25 mg or 0.5 mg (2 mg/3 mL) pen injector 0.25 mg SUBCUT tacrolimus 0.5 mg capsule 0.5 mg PO BID magnesium oxide 400 mg magnesium tablet 400 mg PO BID hydrocodone-acetaminophen 5-325 mg tablet 1 tab PO Q6H PRN (Reason: pain) Qty: 24 0RF ondansetron 4 mg tablet,disintegrating 4 mg PO Q6H PRN (Reason: nausea and vomiting) Qty: 20 0RF amoxicillin-pot clavulanate 875-125 mg tablet 1 tab PO BID Qty: 14 0RF Referrals: Ru Mayorga MD [Primary Care Provider, Internal Medicine] Stand Alone Forms: Patient Portal/API
[2025-07-25] MEDS: MORPHINE 4 MG/ML INJ IV (14:38)
[2025-07-25] MEDS: SODIUM CHLORIDE 0.9% 1,000 ML 1000 ML IV (14:38)
[2025-07-25] MEDS: ONDANSETRON 4 MG/2 ML INJ IV (14:38)
== END 2025-07-25 16:50 | disposition home or self-care (01) ==
PROVIDERS: Emergency Provider Student in an Organized Health Care Education/Training Program; PCP Internal Medicine
DX: K57.92 Diverticulitis of intestine, part unspecified, without perforation or abscess without bleeding (principal)
CPT/HCPCS: 36415; 74177; 80053; 81003; 83690; 85025; 96361; 96374; 96375; 99284; J2272; J2405; J7030; Q9967

== ENCOUNTER → 2025-09-29 06:48 | Outpatient (CLI) | payer MEDICARE, BC, SELFPAY ==
[2019-11-12 13:33] VITALS: BMI 24.0; BMI 26.4
[2025-09-29 07:54] LABS: Add Manual Diff / Slide Review NO; Hematocrit 31.0 % (36-46); Hemoglobin 10.6 g/dL (12.0-16.0); Lymphocytes Absolute Auto 1200 /uL (1100-4500); Mean Corpuscular HGB Conc 34.3 % (30-36); Mean Corpuscular Hemoglobin 35.1 PG (26-34); Mean Corpuscular Volume 102.3 fL (80-100); Platelet Count 244 X10^3/uL (150-400)
[2025-09-29 08:08] LABS: Hemoglobin A1C% w Est Avg Glu 5.7 % (4.0-6.0)
[2025-09-29 08:28] LABS: Alanine Aminotransferase 28 IU/L (<35); Albumin 3.6 g/dL (3.5-5.0); Albumin Globulin Ratio 1.6 (1.0-2.8); Alkaline Phosphatase 64 U/L (38-126); Blood Urea Nitrogen 29 mg/dL (7-17); Calcium 9.1 mg/dL (8.4-10.2); Carbon Dioxide 25 mmol/L (22-32); Chloride 105 mmol/L (98-107); Cholesterol 139 mg/dL (140-199); Estimated Glomerular Filt Rate 51 mL/min (>60); Globulin 2.2 g/dL (1.7-4.1); Glucose 90 mg/dL (70-99); HDL Cholesterol 80 mg/dL (40-60); HEMOLYSIS < 15 (0-50); Potassium 4.3 mmol/L (3.4-5.1); Sodium 137 mmol/L (137-145); Total Protein 5.8 g/dL (6.3-8.2); Triglycerides 130 mg/dL (35-150)
[2025-09-29 17:13] LABS: Microalbumi Creatinin Ratio Ur 8.0 ug/mg CR (<30)
== END ==
PROVIDERS: PCP Internal Medicine; Referring Provider Internal Medicine; Visit Provider Internal Medicine
DX: E78.2 Mixed hyperlipidemia (principal); E11.9 Type 2 diabetes mellitus without complications; I12.9 Hypertensive chronic kidney disease with stage 1 through stage 4 chronic kidney disease, or unspecified chronic kidney disease; N18.31 Chronic kidney disease, stage 3a
CPT/HCPCS: 36415; 80053; 80061; 82043; 82570; 83036; 85025